=== PATIENT | female | born 1945 | race Caucasian/White ===

== ENCOUNTER 2017-09-03 21:38 | Inpatient (IN) | payer MEDICARE, SELFPAY ==
[2017-09-03 21:52] VITALS: BMI 26.6
[2017-09-03 21:57] VITALS: PULSE 78
[2017-09-03 22:00] VITALS: BP 124/69; BP 127/68; PULSE 79; RESP 18; TEMP 36.6; O2SAT 98
--- NOTE | 2017-09-03 22:27 | PCM.HP.STD ---
Problem List (1) NSTEMI (non-ST elevated myocardial infarction) Status: Acute (2) COPD exacerbation Status: Acute (3) Lactate blood increase Status: Acute (4) CAD (coronary artery disease) Status: Chronic Qualifiers: (5) COPD (chronic obstructive pulmonary disease) Status: Chronic (6) Essential hypertension Status: Chronic (7) Hyperlipidemia Status: Chronic Qualifiers: History of Present Illness Date of Admission: 09/03/17 Chief Complaint: NSTEMI The patient is a 71 year old female w/ h/o CAD s/p CABG, COPD, osteoarthritis transferred from [facility] to [facility] for NSTEMI. She was admitted for COPD exacerbation and chest pain. She has left shoulder pain for the past 2 months. Shoulder pain is dull-aching and episodic. The frequency and intensity of the pain have increased in the past few weeks. Emotional stressors and physical activity worsened pain. Rest or holding her chest helped with pain. The pain would wrap around her left chest. No radiation of pain. Pain is not associated with any other symptoms. She was admitted to [facility] and transferred to [place] for elevated trop to 0.11. EKG unchanged. Pt has intermittent left shoulder. Past Medical History Past Medical History (Chronic Problems): Chronic Problems (Last Updated 04/14/17 @ 15:43 by IRINA Banegas) COPD (chronic obstructive pulmonary disease) (Chronic) Hyperlipidemia (Chronic) Essential hypertension (Chronic) CAD (coronary artery disease) (Chronic) Allergies bacitracin [From Neosporin ([id number])] Allergy (Severe, Verified 04/14/17 15:47) rash neomycin [From Neosporin ([id number])] Allergy (Severe, Verified 04/14/17 15:47) rash Penicillins Allergy (Severe, Verified 04/14/17 15:47) rash polymyxin B [From Neosporin ([id number])] Allergy (Severe, Verified 04/14/17 15:47) rash Home Medications: Ambulatory Orders Medication Instructions Recorded aspirin 81 mg tablet,delayed 81 mg PO QDAY 04/14/17 release atorvastatin 80 mg tablet 80 mg PO QODAY 04/14/17 clopidogrel 75 mg tablet 75 mg PO ONCE 04/14/17 ezetimibe 10 mg tablet 10 mg PO QDAY 04/14/17 lisinopril 20 mg tablet 20 mg PO QDAY 04/14/17 metformin 1,000 mg tablet 1,000 mg PO BID 04/14/17 metoprolol succinate ER 100 mg 100 mg PO QDAY 04/14/17 tablet,extended release 24 hr nitroglycerin 0.4 mg sublingual 0.4 mg SUBLINGUAL Q5-15M PRN 04/14/17 tablet ranitidine 300 mg capsule 300 mg PO QHS 04/14/17 Levothyroxine Sodium 09/03/17 Lives: With Family Smoking Status: Former smoker - Used to smoke 1 pack / day between 17 and 52 y/o. Quitted smoking at 52 y/o Alcohol: None - *Family History Maternal History Items: No pertinent history Review of Systems Constitutional: Denies: Chills, Fever, Weight Change HEENT: Denies: Head Aches, Sinus Congestion, Sinus Drainage Cardiovascular: Denies: Chest Pain, Palpitations Respiratory: Denies: Cough, Shortness of breath at rest, Sputum production Gastrointestinal: Denies: Abdominal Pain, Nausea, Vomiting Genitourinary: Denies: Dysuria Musculoskeletal: Denies: Joint Pain, Joint Tenderness Skin: Denies: Rash, Wounds Neurological: Denies: Numbness, Tingling, Focal weakness Psychiatric: Denies: Anxiety, Depression, Homicidal Ideations, Suicidal Ideations Hematologic/ Lymphatic: Denies: Easy Bruising, Easy Bleeding VTE Information - Inpt Only VTE Present on Admission: No VTE Mechan Device Prophylaxis: SCD's VTE Pharm Prophylaxis ordered?: Yes Patient Problems: Active and Suspected Problems (Last Updated 04/14/17 @ 15:43 by IRINA Banegas) NSTEMI (non-ST elevated myocardial infarction) (Acute) COPD exacerbation (Acute) Lactate blood increase (Acute) - Physical Exam General: Alert, Oriented x3, Cooperative HEENT: Atraumatic, PERRLA, EOMI, Normocephalic Neck: Supple, No JVD, Negative Carotid Bruits Lungs: Clear to auscultation, Normal air movement Cardiovascular: Regular rate, No murmurs Abdomen: Bowel Sounds Present, Soft, Non Tender Extremities: No edema, Capillary Refill Less than 3 Seconds Skin: No rashes, No breakdown Musculoskeletal: No Tenderness to Palpation of Joints or Extremities Neurological: Cranial nerves II-XII grossly intact Psych/Mental Status: Normal Affect, Appropriate Weight: 72.7 kg Body Mass Index (BMI) 26.6 Assessment/Plan Active and Suspected Problems (Last Updated 04/14/17 @ 15:43 by IRINA Banegas) NSTEMI (non-ST elevated myocardial infarction) (Acute) COPD exacerbation (Acute) Lactate blood increase (Acute) 71 year old female w/ h/o CAD s/p CABG in July 2015, cholecystectomy, hysterectomy with oophorectomy in 1990 secondary to severe endometriosis, DMII, chronic diastolic heart failure, COPD, and osteoarthritis transferred from [facility] to [facility] for NSTEMI. 1) NSTEMI: Trops bumped to 0.[address] elevation or depression. C/w heparin gtt. C/w conservative medical management, ie lipitor, metoprolol, ASA, plavix, and lisinopril. Serial trops. ECHO in AM. Consulted cards. 2) COPD exacerbation: Resume home meds. C/w steroid, bronchodilators, azithromycin, and oxygen., Supportive care. 3) Elevated lactate: Cultures [id number] Will repeat elevated and consider repeating cultures if level is high. Hold metformin. Monitor. 4) Chronic issues: CAD s/p CABG in July 2015, cholecystectomy, hysterectomy with oophorectomy in 1990 secondary to severe endometriosis, DMII, chronic diastolic heart failure, COPD, and osteoarthritis: Resume home meds. Supportive care. 5) Prophylaxis: Heparin gtt.
--- NOTE | 2017-09-03 22:45 | HP.PCM_ITS ---
Problem List (1) NSTEMI (non-ST elevated myocardial infarction) Status: Acute (2) COPD exacerbation Status: Acute (3) Lactate blood increase Status: Acute (4) CAD (coronary artery disease) Status: Chronic Qualifiers: (5) COPD (chronic obstructive pulmonary disease) Status: Chronic (6) Essential hypertension Status: Chronic (7) Hyperlipidemia Status: Chronic Qualifiers: History of Present Illness Date of Admission: 09/03/17 Chief Complaint: NSTEMI The patient is a 71 year old female w/ h/o CAD s/p CABG, COPD, osteoarthritis transferred from [facility] to [facility] for NSTEMI. She was admitted for COPD exacerbation and chest pain. She has left shoulder pain for the past 2 months. Shoulder pain is dull-aching and episodic. The frequency and intensity of the pain have increased in the past few weeks. Emotional stressors and physical activity worsened pain. Rest or holding her chest helped with pain. The pain would wrap around her left chest. No radiation of pain. Pain is not associated with any other symptoms. She was admitted to [facility] and transferred to [place] for elevated trop to 0.11. EKG unchanged. Pt has intermittent left shoulder. Past Medical History Past Medical History (Chronic Problems): Chronic Problems (Last Updated 04/14/17 @ 15:43 by IRINA Banegas) COPD (chronic obstructive pulmonary disease) (Chronic) Hyperlipidemia (Chronic) Essential hypertension (Chronic) CAD (coronary artery disease) (Chronic) Allergies bacitracin [From Neosporin ([id number])] Allergy (Severe, Verified 04/14/17 15:47) rash neomycin [From Neosporin ([id number])] Allergy (Severe, Verified 04/14/17 15: 47) rash Penicillins Allergy (Severe, Verified 04/14/17 15:47) rash polymyxin B [From Neosporin ([id number])] Allergy (Severe, Verified 04/14/17 15:47) rash Home Medications: Ambulatory Orders Medication Instructions Recorded aspirin 81 mg tablet,delayed 81 mg PO QDAY 04/14/17 release atorvastatin 80 mg tablet 80 mg PO QODAY 04/14/17 clopidogrel 75 mg tablet 75 mg PO ONCE 04/14/17 ezetimibe 10 mg tablet 10 mg PO QDAY 04/14/17 lisinopril 20 mg tablet 20 mg PO QDAY 04/14/17 metformin 1,000 mg tablet 1,000 mg PO BID 04/14/17 metoprolol succinate ER 100 mg 100 mg PO QDAY 04/14/17 tablet,extended release 24 hr nitroglycerin 0.4 mg sublingual 0.4 mg SUBLINGUAL Q5-15M PRN 04/14/17 tablet ranitidine 300 mg capsule 300 mg PO QHS 04/14/17 Levothyroxine Sodium 09/03/17 Lives: With Family Smoking Status: Former smoker - Used to smoke 1 pack / day between 17 and 52 y/ o. Quitted smoking at 52 y/o Alcohol: None - *Family History Maternal History Items: No pertinent history Review of Systems Constitutional: Denies: Chills, Fever, Weight Change HEENT: Denies: Head Aches, Sinus Congestion, Sinus Drainage Cardiovascular: Denies: Chest Pain, Palpitations Respiratory: Denies: Cough, Shortness of breath at rest, Sputum production Gastrointestinal: Denies: Abdominal Pain, Nausea, Vomiting Genitourinary: Denies: Dysuria Musculoskeletal: Denies: Joint Pain, Joint Tenderness Skin: Denies: Rash, Wounds Neurological: Denies: Numbness, Tingling, Focal weakness Psychiatric: Denies: Anxiety, Depression, Homicidal Ideations, Suicidal Ideations Hematologic/ Lymphatic: Denies: Easy Bruising, Easy Bleeding VTE Information - Inpt Only VTE Present on Admission: No VTE Mechan Device Prophylaxis: SCD's VTE Pharm Prophylaxis ordered?: Yes Patient Problems: Active and Suspected Problems (Last Updated 04/14/17 @ 15:43 by IRINA Banegas) NSTEMI (non-ST elevated myocardial infarction) (Acute) COPD exacerbation (Acute) Lactate blood increase (Acute) - Physical Exam General: Alert, Oriented x3, Cooperative HEENT: Atraumatic, PERRLA, EOMI, Normocephalic Neck: Supple, No JVD, Negative Carotid Bruits Lungs: Clear to auscultation, Normal air movement Cardiovascular: Regular rate, No murmurs Abdomen: Bowel Sounds Present, Soft, Non Tender Extremities: No edema, Capillary Refill Less than 3 Seconds Skin: No rashes, No breakdown Musculoskeletal: No Tenderness to Palpation of Joints or Extremities Neurological: Cranial nerves II-XII grossly intact Psych/Mental Status: Normal Affect, Appropriate Weight: 72.7 kg Body Mass Index (BMI) 26.6 Assessment/Plan Active and Suspected Problems (Last Updated 04/14/17 @ 15:43 by IRINA Banegas) NSTEMI (non-ST elevated myocardial infarction) (Acute) COPD exacerbation (Acute) Lactate blood increase (Acute) 71 year old female w/ h/o CAD s/p CABG in July 2015, cholecystectomy, hysterectomy with oophorectomy in 1990 secondary to severe endometriosis, DMII, chronic diastolic heart failure, COPD, and osteoarthritis transferred from [facility] to [facility] for NSTEMI. 1) NSTEMI: Trops bumped to 0.[address] elevation or depression. C/w heparin gtt. C/w conservative medical management, ie lipitor, metoprolol, ASA, plavix, and lisinopril. Serial trops. ECHO in AM. Consulted cards. 2) COPD exacerbation: Resume home meds. C/w steroid, bronchodilators, azithromycin, and oxygen., Supportive care. 3) Elevated lactate: Cultures [id number] Will repeat elevated and consider repeating cultures if level is high. Hold metformin. Monitor. 4) Chronic issues: CAD s/p CABG in July 2015, cholecystectomy, hysterectomy with oophorectomy in 1990 secondary to severe endometriosis, DMII, chronic diastolic heart failure, COPD, and osteoarthritis: Resume home meds. Supportive care. 5) Prophylaxis: Heparin gtt.
--- NOTE | 2017-09-03 22:55 | EKG12_ITS ---
Test Reason : CP ADMISSION Blood Pressure : / mmHG Vent. Rate : 078 BPM Atrial Rate : 078 BPM P-R Int : 176 ms QRS Dur : 076 ms QT Int : 404 ms P-R-T Axes : 073 063 091 degrees QTc Int : 460 ms Normal sinus rhythm Septal infarct , age undetermined Abnormal ECG When compared with ECG of 10-NOV-2011 10:34, Septal infarct is now Present Confirmed by FILEMON ÁLVAREZ, NUHA ([id number]), videotape editor RUSSELL BASURTO ([id number]) on 09/06/2017 3:23:44 PM Referred By: SAUL Confirmed By:NUHA COLBERT MD
[2017-09-03 23:03] VITALS: PULSE 78
--- NOTE | 2017-09-03 23:14 | NURSING ---
Called [facility] and Spoke with Carmela KENNEY. Heparin Drip started at [address] [facility]. She will fax documentation for this and PTT results.
[2017-09-03] MEDS: HEPARIN/D5w 25,000 UNITS 25,000 UNITS/250 ML IV.SOLN. 12.8 UNITS IV (23:38)
[2017-09-03] MEDS: 0.9% Normal Saline 1,000 ML 100 ML IV (23:39)
[2017-09-03 23:42] LABS: Lactic Acid 2.2 mmol/L (0.4-2.0)
[2017-09-03 23:45] VITALS: BMI 26.7
[2017-09-04] VITALS (41 sets, daily range): BP systolic 104–165; BP diastolic 52–97; PULSE 71–115; RESP 16–23; TEMP 36.4–37.2; O2SAT 92–99
[2017-09-04 01:59] LABS: Partial Thromboplast Time 210.5 Seconds (24.1-36.2)
[2017-09-04 03:02] LABS: Reflex Lactate? Y
[2017-09-04 03:47] LABS: Hematocrit 35.8 % (37-47); Hemoglobin 12.1 g/dl (12.0-15.0); Mean Corp Hgb Conc 33.8 g/gl (32-36); Mean Corpuscular Hgb 30.2 pg (27.0-32.0); Mean Corpuscular Volume 89.3 fL (81-99); Mean Platelet Vol. 9.2 fl (6.2-12.0); Platelet Count 296 K/mm3 (150-450); RBC Distribution Width CV 13.6 % (11.6-14.6); RBC Distribution Width SD 43.6 fl (35.1-43.9); Red Blood Count 4.01 M/mm3 (4.2-5.4); White Blood Count 14.2 K/mm3 (4.4-11.0)
[2017-09-04 03:49] LABS: Scan Indicated on CBC? Y/N NO
[2017-09-04 04:13] LABS: Lactic Acid 2.6 mmol/L (0.4-2.0)
[2017-09-04 04:20] LABS: Albumin, Serum 3.2 g/dL (3.2-5.0); BUN 22 mg/dL (7-18); BUN/Creat Ratio 28.9 RATIO (10-20); Creatinine, Serum 0.76 mg/dL (0.55-1.02); EST Glomerular Filtration Rate 79 mL/min (>60); Est Glom Filt Rate - Afr Amer 96 mL/min (>60); Estimated Creatinine Clearance 46.43 ml/min; Glucose 171 mg/dL (74-106); Protein, Total 6.7 g/dL (6.4-8.2)
[2017-09-04 04:21] LABS: ALB/GLOB Ratio 0.9 RATIO (0.9-2.4); AST(SGOT) 18 U/L (15-37); Alanine Aminotransfer ALT/SGPT 21 U/L (13-56); Alkaline Phosphatase 89 U/L (45-117); Anion Gap 10 (5-15); Calcium,Total 8.4 mg/dL (8.5-10.1); Chloride 108 mmol/L (98-107); Cholesterol 175 mg/dL (200); Globulin 3.5 g/dL (2.2-4.2); High Density Lipoprotein 67 mg/dL; Potassium 4.4 mmol/L (3.5-5.1); Sodium Level 141 mmol/L (136-145); Thyroid Stim Hormone (TSH) 0.08 uIU/mL (0.358-3.74); Triglycerides 127 mg/dL; Very Low Density Lipoprotein 25 mg/dL (5-40)
[2017-09-04] MEDS: 0.9% Normal Saline 1,000 ML 999 ML IV (04:47)
--- NOTE | 2017-09-04 05:55 | ECHOD_ITS ---
Reason For Study: Chest Pain Procedure This was a 2D Doppler, Color Flow transthoracic echocardiogram. The study was technically difficult. Exam performed portable in ICU/CCU. Left Ventricle Normal LV size. Left ventricular systolic function is normal. The estimated ejection fraction is 60 %. Transmitral diastolic flow velocities suggest mild (stage 1) diastolic dysfunction (reversed pattern). No regional wall motion abnormalities noted. Right Ventricle Normal RV size. Normal systolic function. Atria Normal left atrium. Normal right atrium. Mitral Valve Normal mitral valve. Mild (1+) eccentric mitral valve insufficiency. Tricuspid Valve Normal tricuspid valve. Mild (1+) tricuspid valve insufficiency. Pulmonary artery systolic pressure is 46 mmHg. Aortic Valve Trisinus/trileaflet aortic valve. Mild focal aortic valve calcification. Peak aortic valve gradient 15 mmHg. Mean aortic valve gradient 6.5 mmHg. Mild aortic stenosis. Pulmonic Valve The pulmonic valve is not well visualized. Great Vessels Calcified aortic root. The pulmonary artery is normal size. Inferior vena cava collapse with respiration. Pericardium/Pleural No pericardial effusion. MMode/2D Measurements & Calculations LVIDd: 4.1 cm IVSd: 1.1 cm Ao root diam: 3.1 cm LVIDs: 2.6 cm LVPWd: 1.3 cm FS: 37.0 % LAV(MOD-sp2): 43.2 ml Time Measurements MV dec time: 0.23 sec Doppler Measurements & Calculations MV E max chintan: 127.1 cm/sec Lat Peak E' Chintan: 9.7 cm/sec Med Peak E' Chintan: 6.8 cm/sec MV A max chintan: 152.3 cm/sec E/E' lat: 13.0 E/E' med: 18.8 MV E/A: 0.83 MV V2 max: 193.0 cm/sec MV P1/2t max chintan: 171.8 cm/sec Ao V2 max: 198.9 cm/sec MV max P.9 mmHg MV P1/2t: 61.4 msec Ao max P.8 mmHg MV V2 mean: 114.4 cm/sec MV dec slope: 819.2 cm/sec2 Ao V2 mean: 113.7 cm/sec MV mean P.1 mmHg MVA(P1/2t): 3.6 cm2 Ao mean P.5 mmHg MV V2 VTI: 44.1 cm Ao V2 VTI: 36.3 cm LV V1 max: 124.7 cm/sec PA V2 max: 131.8 cm/sec TR max chnitan: 333.2 cm/sec LV V1 max P.2 mmHg TR max P.4 mmHg LV V1 mean P.8 mmHg LV V1 mean: 76.7 cm/sec LV V1 VTI: 26.1 cm Interpretation Summary Normal LV size. Left ventricular systolic function is normal. The estimated ejection fraction is 60 %. Transmitral diastolic flow velocities suggest mild (stage 1) diastolic dysfunction (reversed pattern). Calcified aortic root. Ordering Physician: Thomas Macias Performed By: Sam Saldivar RCS
--- NOTE | 2017-09-04 05:55 | EKG12_ITS ---
Test Reason : AM EKG Blood Pressure : / mmHG Vent. Rate : 082 BPM Atrial Rate : 082 BPM P-R Int : 176 ms QRS Dur : 080 ms QT Int : 400 ms P-R-T Axes : 063 062 111 degrees QTc Int : 467 ms Sinus rhythm with Premature atrial complexes Septal infarct , age undetermined Abnormal ECG When compared with ECG of 03-SEP-2017 23:02, MANUAL COMPARISON REQUIRED, DATA IS UNCONFIRMED Confirmed by FILEMON ÁLVAREZ, NUHA ([id number]), science editor RUSSELL BASURTO ([id number]) on 09/06/2017 3:23:25 PM Referred By: SAUL Confirmed By:NUHA COLBERT MD
[2017-09-04] MEDS: Levothyroxine 88 MCG Tablet PO (06:39)
[2017-09-04] MEDS: Ipratropium/Albuterol Sulfate 3 ML AMPUL.NEB INHALATION ×5 (06:51→22:22)
[2017-09-04] MEDS: Aspirin E.C. 81 MG Tablet PO (08:14)
[2017-09-04 08:48] LABS: Partial Thromboplast Time 79.6 Seconds (24.1-36.2)
--- NOTE | 2017-09-04 09:03 | EKG12_ITS ---
Test Reason : CP Blood Pressure : / mmHG Vent. Rate : 108 BPM Atrial Rate : 108 BPM P-R Int : 170 ms QRS Dur : 078 ms QT Int : 332 ms P-R-T Axes : 073 073 136 degrees QTc Int : 444 ms Sinus tachycardia Septal infarct , age undetermined Marked ST abnormality, possible lateral subendocardial injury Abnormal ECG When compared with ECG of 04-SEP-2017 05:00, MANUAL COMPARISON REQUIRED, DATA IS UNCONFIRMED Confirmed by FILEMON ÁLVAREZ, NUHA ([id number]), social media editor RUSSELL BASURTO ([id number]) on 09/06/2017 3:22:50 PM Referred By: SAUL Confirmed By:NUHA COLBERT MD
[2017-09-04] MEDS: 0.9% Normal Saline 1,000 ML 100 ML IV ×2 (09:33→22:02)
[2017-09-04] MEDS: Nitroglycerin Oint 1 INCH PACKET TRANSDERM. (09:35)
[2017-09-04] MEDS: Metoprolol Tartrate 50 MG Tablet PO ×2 (09:35→21:55)
--- NOTE | 2017-09-04 09:37 | PCM.PN.HOSP ---
Patient Problems: Active and Suspected Problems (Last Updated 04/14/17 @ 15:43 by IRINA Banegas) NSTEMI (non-ST elevated myocardial infarction) (Acute) COPD exacerbation (Acute) Lactate blood increase (Acute) Subjective: Nurse called me for patient having chest pain. While coming back from bathroom, patient complain of chest pain. Characteristic of her chest pain is mainly intrascapular that wraps around her chest on the left side along with shortness of breath. EKG done during chest pain shows nonspecific ST depression in lateral leads similar to the previous EKG suggestive of possible subendocardial injury. Sinus tachycardia at 108 bpm. She has history of COPD but her shortness of breath gotten worse in last 1 or 2 weeks along with wheezing. Shortness of breath and wheezing are better on bronchodilator given in ER yesterday. The patient was transferred from [place] for concern of non-STEMI along with COPD exacerbation. Patient has triple bypass CABG about 2 years ago in [facility] and then she had a stress test by Dr. constantino about 6 months ago and was normal.. Troponins significantly elevated 1.66, 1.86 in the range of non-STEMI. Currently on aspirin, Plavix and IV heparin Along beta-reina and STELLA inhibitor on ACS protocol. Vitals/I&O's: Vital Signs Temp Pulse Resp BP Pulse Ox 97.6 F L 104 H 20 H 144/94 H 96 09/04/17 09:22 09/04/17 09:22 09/04/17 09:22 09/04/17 09:22 09/04/17 09:22 Oxygen Flow Rate (L/min) 2 Oxygen Delivery Method Nasal Cannula Weight: 160 lb 4.417 oz Body Mass Index (BMI) 26.6 Intake and Output for Last 24 Hours 09/02/17 09/03/17 09/04/17 23:59 23:59 23:59 Intake Total 1791 Balance 1791 General: Alert, Oriented x3, Cooperative HEENT: Atraumatic, PERRLA, EOMI, Normocephalic Neck: Supple, No JVD, Negative Carotid Bruits Lungs: Diminished, Rhonchi, Short of Breath, Tachypneic Cardiovascular: Regular rate, Regular Rhythm, Normal S1, Normal S2, No murmurs, - - Triple bypass surgery Abdomen: Bowel Sounds Present, Soft, Non Tender, Non-Distended Extremities: No edema, Capillary Refill Less than 3 Seconds Skin: No rashes, No breakdown Musculoskeletal: No Tenderness to Palpation of Joints or Extremities, Arthritic Changes Neurological: Cranial nerves II-XII grossly intact Psych/Mental Status: Normal Affect, Appropriate Microbiology Past 72 Hours 09/03/17 22:50 Mucosa - Nose Influenza Types A,B Direct FA (JASKARAN) - Final Laboratory Results 09/03/17 22:50: Lactic Acid 2.2 H 09/03/17 22:50: APTT Cancelled 09/03/17 22:50: Troponin I 1.660 H* 09/04/17 01:22: Troponin I 2.090 H* 09/04/17 01:22: APTT 210.5 H* 09/04/17 03:38: WBC 14.2 H, RBC 4.01 L, Hgb 12.1, Hct 35.8 L, MCV 89.3, MCH 30.2, MCHC 33.8, RDW 13.6, RDW Differential 43.6, Plt Count 296, MPV 9.2 09/04/17 03:38: Sodium 141, Potassium 4.4, Chloride 108 H, Carbon Dioxide 23.0, Anion Gap 10, BUN 22 H, Creatinine 0.76, Estim Creat Clear Calc 46.43, Est GFR (MDRD) Af Amer 96, Est GFR (MDRD) Non-Af 79, BUN/Creatinine Ratio 28.9 H, Glucose 171 H, Calcium 8.4 L, Total Bilirubin 0.20, AST 18, ALT 21, Alkaline Phosphatase 89, Total Protein 6.7, Albumin 3.2, Globulin 3.5, Albumin/Globulin Ratio 0.9, Triglycerides 127, Cholesterol 175, LDL Cholesterol 83, VLDL Cholesterol 25, HDL Cholesterol 67, TSH 0.08 L 09/04/17 03:38: Troponin I 1.860 H* 09/04/17 03:38: Lactic Acid 2.6 H 09/04/17 08:15: APTT 79.6 H Current Medications Albuterol/Ipratropium (Duoneb) 3 ml INHALATION Q4H.RT [facility] Last Admin: 09/04/17 06:51 Dose: 3 ml Aspirin (Ecotrin) 81 mg PO DAILYCM [facility] Last Admin: 09/04/17 08:14 Dose: 81 mg Atorvastatin Calcium (Lipitor) 80 mg PO QODAY@2200 [facility] Clopidogrel Bisulfate (Plavix) 75 mg PO DAILY [facility] Ezetimibe (Zetia) 10 mg PO DAILY [facility] Famotidine (Pepcid) 40 mg PO QHS [facility] Heparin Sodium (Porcine) () 0 units IV UD PRN PRN Reason: Protocol Sodium Chloride () 1,000 mls @ 100 mls/hr IV .Q10H [facility] Last Admin: 09/04/17 09:33 Dose: 100 mls/hr Azithromycin 500 mg/ Dextrose 255 mls @ 250 mls/hr IV Q24 [facility] Stop: 09/05/17 11:02 Last Admin: 09/04/17 00:23 Dose: 250 mls/hr Heparin Sodium/Dextrose () 25,000 units in 250 mls @ 11 mls/hr IV .[id number] [facility]; As Directed PRN Reason: Protocol Last Admin: 09/03/17 23:38 Dose: 12.8 mls/hr Levothyroxine Sodium (Synthroid) 88 mcg PO DAILY@0600 [facility] Last Admin: 09/04/17 06:39 Dose: 88 mcg Lisinopril (Zestril) 20 mg PO DAILY [facility] Methylprednisolone (Solu-Medrol) 40 mg IV Q8 [facility] Stop: 09/04/17 22:01 Last Admin: 09/04/17 06:39 Dose: 40 mg Metoprolol Tartrate (Lopressor (Beta Reina)) 50 mg PO BID [facility] Nitroglycerin (Nitrostat) 0.4 mg SUBLINGUAL Q5M PRN PRN Reason: CHEST PAIN Last Admin: 09/04/17 09:12 Dose: 0.4 mg Nitroglycerin (Nitrobid) 1 inch TRANSDERM. Q6 [facility] Prednisone () 40 mg PO DAILY@0800 [facility] Sodium Chloride () 5 - 30 ml IV UD PRN PRN Reason: SALINE FLUSH Medical Necessity - Tobacco Use Smoking Status: Former smoker Assessment/Plan Active and Suspected Problems (Last Updated 04/14/17 @ 15:43 by IRINA Banegas) NSTEMI (non-ST elevated myocardial infarction) (Acute) COPD exacerbation (Acute) Lactate blood increase (Acute) 71 year old female w/ h/o CAD s/p CABG in July 2015, cholecystectomy, hysterectomy with oophorectomy in 1990 secondary to severe endometriosis, DMII, chronic diastolic heart failure, COPD, and osteoarthritis transferred from [place] to [facility] for NSTEMI. 1) NSTEMI; most probably lateral subendocardial injury: The patient is being admitted in PCU. First troponin were normal and then third 0.11 in [place] ER. Here, troponin I 0.66, 2.09. EKG shows subtle ST depression in lateral leads in 1, aVL and V5 V6. C/w heparin gtt. C/w medical management, lipitor, metoprolol, ASA, plavix, and lisinopril. Discussed with psychiatric clinician Dr. Landa. ECHO in AM. 2) COPD exacerbation most probably from viral bronchitis: Influenza test is negative. Resume home meds. C/w steroid, bronchodilators, azithromycin, and oxygen., Supportive care. 3) Elevated lactate, most rarely from dehydration/metformin: Cultures [id number] Will repeat elevated and consider repeating cultures if level is high. Hold metformin. Monitor. 4) Chronic issues: CAD s/p CABG in July 2015, cholecystectomy, hysterectomy with oophorectomy in 1990 secondary to severe endometriosis, DMII, chronic diastolic heart failure, COPD, and osteoarthritis: Resume home meds. Supportive care. 5) Prophylaxis: Heparin drip. Microbiology Past 72 Hours 09/03/17 22:50 Mucosa - Nose Influenza Types A,B Direct FA (JASKARAN) - Final Laboratory Results 09/03/17 22:50: Lactic Acid 2.2 H 09/03/17 22:50: APTT Cancelled 09/03/17 22:50: Troponin I 1.660 H* 09/04/17 01:22: Troponin I 2.090 H* 09/04/17 01:22: APTT 210.5 H* 09/04/17 03:38: WBC 14.2 H, RBC 4.01 L, Hgb 12.1, Hct 35.8 L, MCV 89.3, MCH 30.2, MCHC 33.8, RDW 13.6, RDW Differential 43.6, Plt Count 296, MPV 9.2 09/04/17 03:38: Sodium 141, Potassium 4.4, Chloride 108 H, Carbon Dioxide 23.0, Anion Gap 10, BUN 22 H, Creatinine 0.76, Estim Creat Clear Calc 46.43, Est GFR (MDRD) Af Amer 96, Est GFR (MDRD) Non-Af 79, BUN/Creatinine Ratio 28.9 H, Glucose 171 H, Calcium 8.4 L, Total Bilirubin 0.20, AST 18, ALT 21, Alkaline Phosphatase 89, Total Protein 6.7, Albumin 3.2, Globulin 3.5, Albumin/Globulin Ratio 0.9, Triglycerides 127, Cholesterol 175, LDL Cholesterol 83, VLDL Cholesterol 25, HDL Cholesterol 67, TSH 0.08 L 09/04/17 03:38: Troponin I 1.860 H* 09/04/17 03:38: Lactic Acid 2.6 H 09/04/17 08:15: APTT 79.6 H Code Visit Inpatient E&M: 38911 Subs Hosp L3
--- NOTE | 2017-09-04 09:58 | PN_ITS ---
Patient Problems: Active and Suspected Problems (Last Updated 04/14/17 @ 15:43 by IRINA Banegas) NSTEMI (non-ST elevated myocardial infarction) (Acute) COPD exacerbation (Acute) Lactate blood increase (Acute) Subjective: Nurse called me for patient having chest pain. While coming back from bathroom , patient complain of chest pain. Characteristic of her chest pain is mainly intrascapular that wraps around her chest on the left side along with shortness of breath. EKG done during chest pain shows nonspecific ST depression in lateral leads similar to the previous EKG suggestive of possible subendocardial injury. Sinus tachycardia at 108 bpm. She has history of COPD but her shortness of breath gotten worse in last 1 or 2 weeks along with wheezing. Shortness of breath and wheezing are better on bronchodilator given in ER yesterday. The patient was transferred from [facility] for concern of non-STEMI along with COPD exacerbation. Patient has triple bypass CABG about 2 years ago in [facility] and then she had a stress test by Dr. constantino about 6 months ago and was normal.. Troponins significantly elevated 1.66, 1.86 in the range of non-STEMI. Currently on aspirin, Plavix and IV heparin Along beta- reina and STELLA inhibitor on ACS protocol. Vitals/I&O's: Vital Signs Temp Pulse Resp BP Pulse Ox 97.6 F L 104 H 20 H 144/94 H 96 09/04/17 09:22 09/04/17 09:22 09/04/17 09:22 09/04/17 09:22 09/04/17 09:22 Oxygen Flow Rate (L/min) 2 Oxygen Delivery Method Nasal Cannula Weight: 160 lb 4.417 oz Body Mass Index (BMI) 26.6 Intake and Output for Last 24 Hours 09/02/17 09/03/17 09/04/17 23:59 23:59 23:59 Intake Total 1791 Balance 1791 General: Alert, Oriented x3, Cooperative HEENT: Atraumatic, PERRLA, EOMI, Normocephalic Neck: Supple, No JVD, Negative Carotid Bruits Lungs: Diminished, Rhonchi, Short of Breath, Tachypneic Cardiovascular: Regular rate, Regular Rhythm, Normal S1, Normal S2, No murmurs, - - Triple bypass surgery Abdomen: Bowel Sounds Present, Soft, Non Tender, Non-Distended Extremities: No edema, Capillary Refill Less than 3 Seconds Skin: No rashes, No breakdown Musculoskeletal: No Tenderness to Palpation of Joints or Extremities, Arthritic Changes Neurological: Cranial nerves II-XII grossly intact Psych/Mental Status: Normal Affect, Appropriate Microbiology Past 72 Hours 09/03/17 22:50 Mucosa - Nose Influenza Types A,B Direct FA (JASKARAN) - Final Laboratory Results 09/03/17 22:50: Lactic Acid 2.2 H 09/03/17 22:50: APTT Cancelled 09/03/17 22:50: Troponin I 1.660 H* 09/04/17 01:22: Troponin I 2.090 H* 09/04/17 01:22: APTT 210.5 H* 09/04/17 03:38: WBC 14.2 H, RBC 4.01 L, Hgb 12.1, Hct 35.8 L, MCV 89.3, MCH 30.2 , MCHC 33.8, RDW 13.6, RDW Differential 43.6, Plt Count 296, MPV 9.2 09/04/17 03:38: Sodium 141, Potassium 4.4, Chloride 108 H, Carbon Dioxide 23.0, Anion Gap 10, BUN 22 H, Creatinine 0.76, Estim Creat Clear Calc 46.43, Est GFR ( MDRD) Af Amer 96, Est GFR (MDRD) Non-Af 79, BUN/Creatinine Ratio 28.9 H, Glucose 171 H, Calcium 8.4 L, Total Bilirubin 0.20, AST 18, ALT 21, Alkaline Phosphatase 89, Total Protein 6.7, Albumin 3.2, Globulin 3.5, Albumin/Globulin Ratio 0.9, Triglycerides 127, Cholesterol 175, LDL Cholesterol 83, VLDL Cholesterol 25, HDL Cholesterol 67, TSH 0.08 L 09/04/17 03:38: Troponin I 1.860 H* 09/04/17 03:38: Lactic Acid 2.6 H 09/04/17 08:15: APTT 79.6 H Current Medications Albuterol/Ipratropium (Duoneb) 3 ml INHALATION Q4H.RT [facility] Last Admin: 09/04/17 06:51 Dose: 3 ml Aspirin (Ecotrin) 81 mg PO DAILYCM [facility] Last Admin: 09/04/17 08:14 Dose: 81 mg Atorvastatin Calcium (Lipitor) 80 mg PO QODAY@2200 [facility] Clopidogrel Bisulfate (Plavix) 75 mg PO DAILY [facility] Ezetimibe (Zetia) 10 mg PO DAILY [facility] Famotidine (Pepcid) 40 mg PO QHS [facility] Heparin Sodium (Porcine) () 0 units IV UD PRN PRN Reason: Protocol Sodium Chloride () 1,000 mls @ 100 mls/hr IV .Q10H [facility] Last Admin: 09/04/17 09:33 Dose: 100 mls/hr Azithromycin 500 mg/ Dextrose 255 mls @ 250 mls/hr IV Q24 [facility] Stop: 09/05/17 11:02 Last Admin: 09/04/17 00:23 Dose: 250 mls/hr Heparin Sodium/Dextrose () 25,000 units in 250 mls @ 11 mls/hr IV .[id number] [facility] ; As Directed PRN Reason: Protocol Last Admin: 09/03/17 23:38 Dose: 12.8 mls/hr Levothyroxine Sodium (Synthroid) 88 mcg PO DAILY@0600 [facility] Last Admin: 09/04/17 06:39 Dose: 88 mcg Lisinopril (Zestril) 20 mg PO DAILY [facility] Methylprednisolone (Solu-Medrol) 40 mg IV Q8 [facility] Stop: 09/04/17 22:01 Last Admin: 09/04/17 06:39 Dose: 40 mg Metoprolol Tartrate (Lopressor (Beta Reina)) 50 mg PO BID [facility] Nitroglycerin (Nitrostat) 0.4 mg SUBLINGUAL Q5M PRN PRN Reason: CHEST PAIN Last Admin: 09/04/17 09:12 Dose: 0.4 mg Nitroglycerin (Nitrobid) 1 inch TRANSDERM. Q6 [facility] Prednisone () 40 mg PO DAILY@0800 [facility] Sodium Chloride () 5 - 30 ml IV UD PRN PRN Reason: SALINE FLUSH Medical Necessity - Tobacco Use Smoking Status: Former smoker Assessment/Plan Active and Suspected Problems (Last Updated 04/14/17 @ 15:43 by IRINA Banegas) NSTEMI (non-ST elevated myocardial infarction) (Acute) COPD exacerbation (Acute) Lactate blood increase (Acute) 71 year old female w/ h/o CAD s/p CABG in July 2015, cholecystectomy, hysterectomy with oophorectomy in 1990 secondary to severe endometriosis, DMII, chronic diastolic heart failure, COPD, and osteoarthritis transferred from [facility] to [facility] for NSTEMI. 1) NSTEMI; most probably lateral subendocardial injury: The patient is being admitted in PCU. First troponin were normal and then third 0.11 in [place] ER. Here, troponin I 0.66, 2.09. EKG shows subtle ST depression in lateral leads in 1, aVL and V5 V6. C/w heparin gtt. C/w medical management, lipitor, metoprolol, ASA, plavix, and lisinopril. Discussed with motion picture set grip Dr. Landa. ECHO in AM. 2) COPD exacerbation most probably from viral bronchitis: Influenza test is negative. Resume home meds. C/w steroid, bronchodilators, azithromycin, and oxygen., Supportive care. 3) Elevated lactate, most rarely from dehydration/metformin: Cultures negative- to-date Will repeat elevated and consider repeating cultures if level is high. Hold metformin. Monitor. 4) Chronic issues: CAD s/p CABG in July 2015, cholecystectomy, hysterectomy with oophorectomy in 1990 secondary to severe endometriosis, DMII, chronic diastolic heart failure, COPD, and osteoarthritis: Resume home meds. Supportive care. 5) Prophylaxis: Heparin drip. Microbiology Past 72 Hours 09/03/17 22:50 Mucosa - Nose Influenza Types A,B Direct FA (JASKARAN) - Final Laboratory Results 09/03/17 22:50: Lactic Acid 2.2 H 09/03/17 22:50: APTT Cancelled 09/03/17 22:50: Troponin I 1.660 H* 09/04/17 01:22: Troponin I 2.090 H* 09/04/17 01:22: APTT 210.5 H* 09/04/17 03:38: WBC 14.2 H, RBC 4.01 L, Hgb 12.1, Hct 35.8 L, MCV 89.3, MCH 30.2 , MCHC 33.8, RDW 13.6, RDW Differential 43.6, Plt Count 296, MPV 9.2 09/04/17 03:38: Sodium 141, Potassium 4.4, Chloride 108 H, Carbon Dioxide 23.0, Anion Gap 10, BUN 22 H, Creatinine 0.76, Estim Creat Clear Calc 46.43, Est GFR ( MDRD) Af Amer 96, Est GFR (MDRD) Non-Af 79, BUN/Creatinine Ratio 28.9 H, Glucose 171 H, Calcium 8.4 L, Total Bilirubin 0.20, AST 18, ALT 21, Alkaline Phosphatase 89, Total Protein 6.7, Albumin 3.2, Globulin 3.5, Albumin/Globulin Ratio 0.9, Triglycerides 127, Cholesterol 175, LDL Cholesterol 83, VLDL Cholesterol 25, HDL Cholesterol 67, TSH 0.08 L 09/04/17 03:38: Troponin I 1.860 H* 09/04/17 03:38: Lactic Acid 2.6 H 09/04/17 08:15: APTT 79.6 H Code Visit Inpatient E&M: 48393 Subs Hosp L3
[2017-09-04 10:37] LABS: Hemoglobin A1c 6.5 % (4.2-6.3)
[2017-09-04 10:54] LABS: Lactic Acid 4.6 mmol/L (0.4-2.0)
[2017-09-04 10:58] LABS: T4 Free Direct 1.36 ng/dL (0.76-1.46)
[2017-09-04] MEDS: Ezetimibe 10 MG Tablet PO (11:00)
[2017-09-04] MEDS: Clopidogrel Bisulfate 75 MG Tablet PO (11:00)
[2017-09-04] MEDS: Lisinopril 20 MG Tablet PO (11:00)
--- NOTE | 2017-09-04 11:11 | NURSING ---
This RN taking over care at this time
[2017-09-04] MEDS: 0.9% NaCl Peripheral Flush Adult/Peds IV ×4 (11:28→22:01)
[2017-09-04] MEDS: Morphine 4 MG/ML Syringe 2 MG IV (11:28)
--- NOTE | 2017-09-04 13:01 | PCM.CONS.C ---
Problem List (1) NSTEMI (non-ST elevated myocardial infarction) Status: Acute (2) CAD (coronary artery disease) Status: Chronic Qualifiers: Coronary Disease-Associated Artery/Lesion type: [place] artery [place] vs. transplanted heart: [place] heart Associated angina: with unstable angina Qualified Code(s): I25.110 - Atherosclerotic heart disease of [place] coronary artery with unstable angina pectoris (3) S/P CABG x 3 Status: Acute Comment: SHETH to LAD; SVG to OM; SVG to PDA (4) Hyperlipidemia Status: Chronic Qualifiers: Hyperlipidemia type: unspecified Qualified Code(s): E78.5 - Hyperlipidemia, unspecified (5) HTN (hypertension) Status: Chronic Qualifiers: Hypertension type: essential hypertension Qualified Code(s): I10 - Essential (primary) hypertension (6) COPD (chronic obstructive pulmonary disease) Status: Chronic Qualifiers: Emphysema type: unspecified Reason for Consult Date of Consultation: 09/04/17 History of Present Illness: The patient is a 71 year old female with a past cardiovascular history of underlying CAD, CABG, who proposed upon hyperlipidemia, hypertension, and COPD who presents for concerns of unstable angina pectoris and non-ST segment elevation MS. She notes that she has been having episodes of left-sided chest discomfort involving the left shoulder area, left back, and left neck/jaw area associated with shortness of breath/dyspnea. She has been using nitroglycerin sublingual for this. It does give her relief. Based upon ongoing concerns she presented to her local emergency department in [place], [place] yesterday for further evaluation. There she was noted to have an abnormal troponin I level. 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 Since being at [facility] she has had intermittent episodes of similar type symptoms. They have been treated with nitrates with improvement. She has denied orthopnea or PND or worsening peripheral pitting edema. She has denied near syncope or syncope. Her cardiac enzymes have been repeated and they have demonstrated abnormal troponin I levels which are now decreasing. Her ECG on admission demonstrated sinus rhythm with a septal MS pattern of indeterminate age. Repeat ECGs have demonstrated sinus rhythm/sinus tachycardia with a septal MS of indeterminate age as well as ST segment/T-wave abnormalities in the inferior/lateral leads potentially compatible with myocardial ischemia. [] Past Medical History Allergies/Adverse Reactions: Allergies bacitracin [From Neosporin ([id number])] Allergy (Severe, Verified 04/14/17 15:47) rash neomycin [From Neosporin ([id number])] Allergy (Severe, Verified 04/14/17 15:47) rash Penicillins Allergy (Severe, Verified 04/14/17 15:47) rash polymyxin B [From Neosporin ([id number])] Allergy (Severe, Verified 04/14/17 15:47) rash Home Medications: Ambulatory Orders Medication Instructions Recorded aspirin 81 mg tablet,delayed 81 mg PO QDAY 04/14/17 release atorvastatin 80 mg tablet 80 mg PO QODAY 04/14/17 clopidogrel 75 mg tablet 75 mg PO ONCE 04/14/17 ezetimibe 10 mg tablet 10 mg PO QDAY 04/14/17 lisinopril 20 mg tablet 20 mg PO QDAY 04/14/17 metformin 1,000 mg tablet 1,000 mg PO BID 04/14/17 metoprolol succinate ER 100 mg 100 mg PO QDAY 04/14/17 tablet,extended release 24 hr nitroglycerin 0.4 mg sublingual 0.4 mg SUBLINGUAL Q5-15M PRN 04/14/17 tablet ranitidine 300 mg capsule 300 mg PO QHS 04/14/17 Levothyroxine Sodium 88 mcg PO DAILY 09/03/17 Past Medical History (Chronic Problems): Chronic Problems (Last Updated 04/14/17 @ 15:43 by IRINA Banegas) HTN (hypertension) (Chronic) COPD (chronic obstructive pulmonary disease) (Chronic) Hyperlipidemia (Chronic) Essential hypertension (Chronic) CAD (coronary artery disease) (Chronic) Surgical History: coronary bypass surgery - SHETH to LAD; SVG to OM; SVG to PDA - *Family History Maternal History Items: No pertinent history Lives: With Family Smoking Status: Former smoker Alcohol: None Drugs: None Review of Systems - Review of Systems General: Denies: Fever, Night Sweats, Fatigue Cardiovascular: Reports: Chest Discomfort, Chest Discomfort at Rest, Shortness of Breath, Shortness of Breath at Rest. Denies: Orthopnea, PND, Peripheral Edema, Palpitations, Lightheadedness, Dizziness, Near Syncope, Syncope Respiratory: Reports: Shortness of Breath. Denies: Cough, Sputum Production, Hemoptysis Gastrointestinal: Denies: Hematemesis, Hematochezia, Melena Genitourinary: Denies: Dysuria, Hematuria Skin: Denies: Rash Subjectve: This is a 71-year-old white female who appears to be resting comfortably at the moment on her current medical management. Objective: Vital Signs Temp Pulse Resp BP Pulse Ox 97.8 F 82 20 H 117/68 92 09/04/17 11:00 09/04/17 12:45 09/04/17 12:45 09/04/17 12:45 09/04/17 12:45 Oxygen Flow Rate (L/min) 2 Oxygen Delivery Method Room Air Weight: 160 lb 4.417 oz Body Mass Index (BMI) 26.6 Intake and Output for Last 24 Hours 09/02/17 09/03/17 09/04/17 23:59 23:59 23:59 Intake Total 2985 / 2985 Balance 2985 / 2985 General: Awake, Alert, Oriented x 3, Cooperative, No Acute Distress HEENT: Atraumatic, Normocephalic, PERRL, Sclera Non Icteric Neck: Supple, Good ROM, No JVD Lungs: Clear to auscultation Cardiovascular: Regular Rhythm, Normal S1, Normal S2 Murmur Murmur: Grade 2/6, Soft, Mid Systolic, LLSB Vascular: No Carotid Bruits Abdomen: Bowel Sounds Present, Soft, Non Tender Extremities: No Cyanosis, No Clubbing, No edema Neurological: No Focal Motor or Sensory Deficit 09/03/17 22:50: Lactic Acid 2.2 H 09/03/17 22:50: APTT Cancelled 09/03/17 22:50: Troponin I 1.660 H* 09/04/17 01:22: Troponin I 2.090 H* 09/04/17 01:22: APTT 210.5 H* 09/04/17 03:38: WBC 14.2 H, RBC 4.01 L, Hgb 12.1, Hct 35.8 L, MCV 89.3, MCH 30.2, MCHC 33.8, RDW 13.6, RDW Differential 43.6, Plt Count 296, MPV 9.2 09/04/17 03:38: Sodium 141, Potassium 4.4, Chloride 108 H, Carbon Dioxide 23.0, Anion Gap 10, BUN 22 H, Creatinine 0.76, Est GFR (MDRD) Af Amer 96, Est GFR (MDRD) Non-Af 79, BUN/Creatinine Ratio 28.9 H, Glucose 171 H, Calcium 8.4 L, Total Bilirubin 0.20, Triglycerides 127, Cholesterol 175, LDL Cholesterol 83, VLDL Cholesterol 25, HDL Cholesterol 67 09/04/17 03:38: Troponin I 1.860 H* 09/04/17 03:38: Lactic Acid 2.6 H 09/04/17 08:15: APTT 79.6 H 09/04/17 09:44: Lactic Acid 4.6 H* 09/04/17 09:44: Troponin I 0.997 H* 09/04/17 09:44: Hemoglobin A1c 6.5 H Rhythm: Sinus rhythm EKG: As noted above Stress Test: 2016: [place], [place]: Pharmacologic stress nuclear imaging study: Report stating no evidence of infarct or inducible ischemia Cardiac Cath: 2015: [place], [place]: Left ventricle normal with an LVEF of 65-70%; left main coronary artery with 50% stenosis; LAD with proximal 90% stenosis and mid 80% stenosis; LCx with diffuse 60% stenosis; RCA with mid 100% stenosis CT Surgery: 08/21/2015: [place], [place]: CABG with SHETH to the LAD, SVG to the OM, SVG to the PDA Assessment/Plan 1. Unstable angina pectoris/acute non-ST segment elevation MS The patient presents with symptoms concerning for unstable angina pectoris and objective findings compatible with an acute non-ST segment elevation MS. At the present time the patient is being monitored. She is continuing medical management. This has included a combination of aspirin, antiplatelet therapy, anticoagulant therapy, nitrates, beta-blockers, STELLA inhibitors, lipid-lowering agents, etc. The patient will be recommended for further evaluation with diagnostic cardiac catheterization and possible PCI. The procedure and risks were discussed with the patient. She was agreeable to this approach. 2. CAD status post CABG The patient has a history of underlying CAD as noted above. She has undergone previous noninvasive studies as noted above. She now presents with the aforementioned symptoms and objective findings. At the present time she will continue medical management. She will be considered for additional evaluation with diagnostic cardiac catheterization as noted above. 3. Hyperlipidemia The patient will continue lipid-lowering therapy. 4. Hypertension Patient will continue antihypertensive therapy as deemed appropriate. 5. COPD The patient will continue evaluation care per internal medicine for this. Comment: The above was discussed with the patient and the [facility] staff. This note was generated with [email or web address] dictation software. It may contain incorrect words, spelling, and punctuation that were not noted in checking the note before signing.
--- NOTE | 2017-09-04 13:13 | CON.PCM_ITS ---
Problem List (1) NSTEMI (non-ST elevated myocardial infarction) Status: Acute (2) CAD (coronary artery disease) Status: Chronic Qualifiers: Coronary Disease-Associated Artery/Lesion type: [place] artery [place] vs. transplanted heart: [place] heart Associated angina: with unstable angina Qualified Code(s): I25.110 - Atherosclerotic heart disease of [place] coronary artery with unstable angina pectoris (3) S/P CABG x 3 Status: Acute Comment: SHETH to LAD; SVG to OM; SVG to PDA (4) Hyperlipidemia Status: Chronic Qualifiers: Hyperlipidemia type: unspecified Qualified Code(s): E78.5 - Hyperlipidemia , unspecified (5) HTN (hypertension) Status: Chronic Qualifiers: Hypertension type: essential hypertension Qualified Code(s): I10 - Essential (primary) hypertension (6) COPD (chronic obstructive pulmonary disease) Status: Chronic Qualifiers: Emphysema type: unspecified Reason for Consult Date of Consultation: 09/04/17 History of Present Illness: The patient is a 71 year old female with a past cardiovascular history of underlying CAD, CABG, who proposed upon hyperlipidemia, hypertension, and COPD who presents for concerns of unstable angina pectoris and non-ST segment elevation OK. She notes that she has been having episodes of left-sided chest discomfort involving the left shoulder area, left back, and left neck/jaw area associated with shortness of breath/dyspnea. She has been using nitroglycerin sublingual for this. It does give her relief. Based upon ongoing concerns she presented to her local emergency department in [place], [place] yesterday for further evaluation. There she was noted to have an abnormal troponin I level. She was treated medically which included the initiation of IV heparin and subsequently transferred to 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 Richard Roger, is located at [facility]. Since being at [facility] she has had intermittent episodes of similar type symptoms. They have been treated with nitrates with improvement. She has denied orthopnea or PND or worsening peripheral pitting edema. She has denied near syncope or syncope. Her cardiac enzymes have been repeated and they have demonstrated abnormal troponin I levels which are now decreasing. Her ECG on admission demonstrated sinus rhythm with a septal OK pattern of indeterminate age. Repeat ECGs have demonstrated sinus rhythm/sinus tachycardia with a septal OK of indeterminate age as well as ST segment/T-wave abnormalities in the inferior/lateral leads potentially compatible with myocardial ischemia. [] Past Medical History Allergies/Adverse Reactions: Allergies bacitracin [From Neosporin ([id number])] Allergy (Severe, Verified 04/14/17 15:47) rash neomycin [From Neosporin ([id number])] Allergy (Severe, Verified 04/14/17 15: 47) rash Penicillins Allergy (Severe, Verified 04/14/17 15:47) rash polymyxin B [From Neosporin ([id number])] Allergy (Severe, Verified 04/14/17 15:47) rash Home Medications: Ambulatory Orders Medication Instructions Recorded aspirin 81 mg tablet,delayed 81 mg PO QDAY 04/14/17 release atorvastatin 80 mg tablet 80 mg PO QODAY 04/14/17 clopidogrel 75 mg tablet 75 mg PO ONCE 04/14/17 ezetimibe 10 mg tablet 10 mg PO QDAY 04/14/17 lisinopril 20 mg tablet 20 mg PO QDAY 04/14/17 metformin 1,000 mg tablet 1,000 mg PO BID 04/14/17 metoprolol succinate ER 100 mg 100 mg PO QDAY 04/14/17 tablet,extended release 24 hr nitroglycerin 0.4 mg sublingual 0.4 mg SUBLINGUAL Q5-15M PRN 04/14/17 tablet ranitidine 300 mg capsule 300 mg PO QHS 04/14/17 Levothyroxine Sodium 88 mcg PO DAILY 09/03/17 Past Medical History (Chronic Problems): Chronic Problems (Last Updated 04/14/17 @ 15:43 by IRINA Banegas) HTN (hypertension) (Chronic) COPD (chronic obstructive pulmonary disease) (Chronic) Hyperlipidemia (Chronic) Essential hypertension (Chronic) CAD (coronary artery disease) (Chronic) Surgical History: coronary bypass surgery - SHETH to LAD; SVG to OM; SVG to PDA - *Family History Maternal History Items: No pertinent history Lives: With Family Smoking Status: Former smoker Alcohol: None Drugs: None Review of Systems - Review of Systems General: Denies: Fever, Night Sweats, Fatigue Cardiovascular: Reports: Chest Discomfort, Chest Discomfort at Rest, Shortness of Breath, Shortness of Breath at Rest. Denies: Orthopnea, PND, Peripheral Edema, Palpitations, Lightheadedness, Dizziness, Near Syncope, Syncope Respiratory: Reports: Shortness of Breath. Denies: Cough, Sputum Production, Hemoptysis Gastrointestinal: Denies: Hematemesis, Hematochezia, Melena Genitourinary: Denies: Dysuria, Hematuria Skin: Denies: Rash Subjectve: This is a 71-year-old white female who appears to be resting comfortably at the moment on her current medical management. Objective: Vital Signs Temp Pulse Resp BP Pulse Ox 97.8 F 82 20 H 117/68 92 09/04/17 11:00 09/04/17 12:45 09/04/17 12:45 09/04/17 12:45 09/04/17 12:45 Oxygen Flow Rate (L/min) 2 Oxygen Delivery Method Room Air Weight: 160 lb 4.417 oz Body Mass Index (BMI) 26.6 Intake and Output for Last 24 Hours 09/02/17 09/03/17 09/04/17 23:59 23:59 23:59 Intake Total 2985 / 2985 Balance 2985 / 2985 General: Awake, Alert, Oriented x 3, Cooperative, No Acute Distress HEENT: Atraumatic, Normocephalic, PERRL, Sclera Non Icteric Neck: Supple, Good ROM, No JVD Lungs: Clear to auscultation Cardiovascular: Regular Rhythm, Normal S1, Normal S2 Murmur Murmur: Grade 2/6, Soft, Mid Systolic, LLSB Vascular: No Carotid Bruits Abdomen: Bowel Sounds Present, Soft, Non Tender Extremities: No Cyanosis, No Clubbing, No edema Neurological: No Focal Motor or Sensory Deficit 09/03/17 22:50: Lactic Acid 2.2 H 09/03/17 22:50: APTT Cancelled 09/03/17 22:50: Troponin I 1.660 H* 09/04/17 01:22: Troponin I 2.090 H* 09/04/17 01:22: APTT 210.5 H* 09/04/17 03:38: WBC 14.2 H, RBC 4.01 L, Hgb 12.1, Hct 35.8 L, MCV 89.3, MCH 30.2 , MCHC 33.8, RDW 13.6, RDW Differential 43.6, Plt Count 296, MPV 9.2 09/04/17 03:38: Sodium 141, Potassium 4.4, Chloride 108 H, Carbon Dioxide 23.0, Anion Gap 10, BUN 22 H, Creatinine 0.76, Est GFR (MDRD) Af Amer 96, Est GFR ( MDRD) Non-Af 79, BUN/Creatinine Ratio 28.9 H, Glucose 171 H, Calcium 8.4 L, Total Bilirubin 0.20, Triglycerides 127, Cholesterol 175, LDL Cholesterol 83, VLDL Cholesterol 25, HDL Cholesterol 67 09/04/17 03:38: Troponin I 1.860 H* 09/04/17 03:38: Lactic Acid 2.6 H 09/04/17 08:15: APTT 79.6 H 09/04/17 09:44: Lactic Acid 4.6 H* 09/04/17 09:44: Troponin I 0.997 H* 09/04/17 09:44: Hemoglobin A1c 6.5 H Rhythm: Sinus rhythm EKG: As noted above Stress Test: 2016: [place], [place]: Pharmacologic stress nuclear imaging study: Report stating no evidence of infarct or inducible ischemia Cardiac Cath: 2015: [place], [place]: Left ventricle normal with an LVEF of 65-70%; left main coronary artery with 50% stenosis; LAD with proximal 90% stenosis and mid 80% stenosis; LCx with diffuse 60% stenosis; RCA with mid 100% stenosis CT Surgery: 08/21/2015: [place], [place]: CABG with SHETH to the LAD , SVG to the OM, SVG to the PDA Assessment/Plan 1. Unstable angina pectoris/acute non-ST segment elevation OK The patient presents with symptoms concerning for unstable angina pectoris and objective findings compatible with an acute non-ST segment elevation OK. At the present time the patient is being monitored. She is continuing medical management. This has included a combination of aspirin, antiplatelet therapy, anticoagulant therapy, nitrates, beta-blockers, STELLA inhibitors, lipid-lowering agents, etc. The patient will be recommended for further evaluation with diagnostic cardiac catheterization and possible PCI. The procedure and risks were discussed with the patient. She was agreeable to this approach. 2. CAD status post CABG The patient has a history of underlying CAD as noted above. She has undergone previous noninvasive studies as noted above. She now presents with the aforementioned symptoms and objective findings. At the present time she will continue medical management. She will be considered for additional evaluation with diagnostic cardiac catheterization as noted above. 3. Hyperlipidemia The patient will continue lipid-lowering therapy. 4. Hypertension Patient will continue antihypertensive therapy as deemed appropriate. 5. COPD The patient will continue evaluation care per internal medicine for this. Comment: The above was discussed with the patient and the [facility] staff. This note was generated with [employer] dictation software. It may contain incorrect words, spelling, and punctuation that were not noted in checking the note before signing.
[2017-09-04 14:05] LABS: Reflex Lactate? Y
[2017-09-04 14:55] LABS: Partial Thromboplast Time 68.1 Seconds (24.1-36.2)
[2017-09-04 15:16] LABS: Lactic Acid 3.7 mmol/L (0.4-2.0)
[2017-09-04 15:51] LABS: Bacteria 0 SEEN /hpf (None Seen); Mucous, Urine 0 SEEN /hpf (<or=2+); Red Blood Cells-Urine 0 SEEN /hpf (0-5)
[2017-09-04 15:54] LABS: Color, Urine Straw (Yellow); Glucose, Dipstick 1000 mg/dl (Normal); Ketone-Dipstick Negative (Negative); Leukocyte Esterase-Dipstick Negative /ul (Negative); Nitrite-Dipstick Negative (Negative); Occult Blood-Urine Negative /ul (Negative); Protein-Dipstick Negative (Negative); Urine Bilirubin Dipstick Negative (Negative); Urine Clarity Clear (Clear); Urine Urobilinogen Normal (Normal)
[2017-09-04 16:01] LABS: Squamous Epithelial Cells - UA 0-5 SEEN /hpf (5-10)
[2017-09-04 16:02] LABS: White Blood Cells 0-5 SEEN /hpf (0-5)
[2017-09-04 16:26] LABS: Bedside Glucose 211 mg/dL (70-110)
[2017-09-04] MEDS: HEPARIN/D5w 25,000 UNITS 25,000 UNITS/250 ML IV.SOLN. 9.8 UNITS IV (18:24)
[2017-09-04 21:02] LABS: Partial Thromboplast Time 66.9 Seconds (24.1-36.2)
[2017-09-04] MEDS: Atorvastatin Calcium 80 MG Tablet PO (21:55)
[2017-09-04] MEDS: Famotidine 20 MG Tablet 40 MG PO (21:56)
[2017-09-04] MEDS: Acetaminophen 325 MG Tablet 650 MG PO (22:01)
[2017-09-04 22:20] LABS: Bedside Glucose 311 mg/dL (70-110)
[2017-09-05] VITALS (50 sets, daily range): BP systolic 108–173; BP diastolic 53–94; PULSE 69–99; RESP 12–23; TEMP 36.3–37; O2SAT 92–99
[2017-09-05] MEDS: Ipratropium/Albuterol Sulfate 3 ML AMPUL.NEB INHALATION ×5 (03:03→22:36)
[2017-09-05 05:25] LABS: International Normalized Ratio 1.1; Prothrombin Time (Protime)PT. 13.9 SECONDS (11.7-14.9)
[2017-09-05 05:26] LABS: Absolute Lymphocyte Count 1.34 X10^3/ul (0.83-4.51); Absolute Neutrophil Count 13.4 X10^3/uL (2.0-7.7); Hematocrit 32.9 % (37-47); Hemoglobin 10.8 g/dl (12.0-15.0); Lymphocyte # 1.34 X10^3/ul (4.0); Lymphocyte % 8.7 % (19-41); Mean Corp Hgb Conc 32.8 g/gl (32-36); Mean Corpuscular Hgb 29.2 pg (27.0-32.0); Mean Corpuscular Volume 88.9 fL (81-99); Mean Platelet Vol. 8.8 fl (6.2-12.0); Monocyte# 0.72 X10^3/uL; Monocyte% 4.6 % (0-10); Neutrophil # 13.39 X10^3/uL (2.7-7.7); Neutrophil % 86.4 % (47-70); Partial Thromboplast Time 45.6 Seconds (24.1-36.2); Platelet Count 309 K/mm3 (150-450); RBC Distribution Width CV 13.9 % (11.6-14.6); RBC Distribution Width SD 45.2 fl (35.1-43.9); White Blood Count 15.5 K/mm3 (4.4-11.0)
[2017-09-05 05:32] LABS: Anion Gap 11 (5-15); BUN 19 mg/dL (7-18); BUN/Creat Ratio 24.8 RATIO (10-20); Calcium,Total 8.4 mg/dL (8.5-10.1); Chloride 110 mmol/L (98-107); Creatinine, Serum 0.77 mg/dL (0.55-1.02); EST Glomerular Filtration Rate 79 mL/min (>60); Est Glom Filt Rate - Afr Amer 95 mL/min (>60); Estimated Creatinine Clearance 46.43 ml/min; Glucose 192 mg/dL (74-106); Sodium Level 144 mmol/L (136-145)
--- NOTE | 2017-09-05 05:55 | EKG12_ITS ---
Test Reason : AM EKG Blood Pressure : / mmHG Vent. Rate : 077 BPM Atrial Rate : 077 BPM P-R Int : 160 ms QRS Dur : 076 ms QT Int : 396 ms P-R-T Axes : 069 061 099 degrees QTc Int : 448 ms Normal sinus rhythm Nonspecific ST abnormality Abnormal ECG When compared with ECG of 04-SEP-2017 09:10, MANUAL COMPARISON REQUIRED, DATA IS UNCONFIRMED Confirmed by FILEMON ÁLVAREZ, NUHA ([id number]), book or script editor RUSSELL BASURTO ([id number]) on 09/06/2017 3:20:47 PM Referred By: SAUL Confirmed By:NUHA COLBERT MD
[2017-09-05 06:15] LABS: POSITIVE COUNT NO; POSITIVE DIFFERENTIAL NO; POSITIVE MORPHOLOGY NO
[2017-09-05] MEDS: Metoprolol Tartrate 50 MG Tablet PO ×2 (06:31→21:07)
[2017-09-05] MEDS: Aspirin E.C. 81 MG Tablet PO (06:32)
[2017-09-05] MEDS: Clopidogrel Bisulfate 75 MG Tablet PO (06:32)
[2017-09-05] MEDS: predniSONE 20 MG Tablet 40 MG PO (06:32)
[2017-09-05] MEDS: Levothyroxine 88 MCG Tablet PO (06:32)
[2017-09-05] MEDS: Lisinopril 20 MG Tablet PO (06:32)
[2017-09-05] MEDS: LORazepam 1 MG Tablet PO (06:36)
[2017-09-05 07:05] LABS: Bedside Glucose 170 mg/dL (70-110)
[2017-09-05] MEDS: 0.9% Normal Saline 1,000 ML 100 ML IV ×2 (07:23→17:16)
--- NOTE | 2017-09-05 08:58 | CT_ITS ---
STUDY: CTA CHEST REASON FOR EXAM: Female, 71 years old. Possible subclavian dissection during heart catheterization. RADIATION DOSAGE (If Supplied By Facility): CTDIvol = ( 14.12 ) mGy, DLP = ( 500.08 ) mGycm TECHNIQUE: The examination was performed with the intravenous administration of 75 ml of Isovue 370 contrast material. Post-processing of the angiographic images was performed, with multiplanar reformation and 3D reconstruction. Individualized dose optimization techniques were used for this CT. COMPARISON: None. FINDINGS: Normal enhancement of the main pulmonary artery and right and left pulmonary arteries. Normal enhancement of the bilateral peripheral pulmonary arteries. There is no demonstrated pulmonary embolism. There is atherosclerotic calcification of the aortic arch with tortuosity. I suspect a curvilinear contrast collection in the posterior aspect of the aortic arch. This may represent a subintimal injection. There is no evidence of dissection. There is no demonstrated aortic dissection. Sternal cerclage wires and vascular clips are present from a prior sternotomy and coronary artery bypass graft procedure (CABG). There are calcifications of the coronary arteries. Normal mediastinum. Normal hilar regions. Normal visualized trachea and bronchi. Hyperinflation. Diffuse emphysematous changes with cystic changes worse in the upper lobes. There is evidence of a increased linear markings at the lung bases suggestive of scarring. No focal infiltration is seen. Mild degree of bibasilar atelectasis. Normal pleura. Normal chest wall structures. There are degenerative changes of thoracic spine. The patient is status post cholecystectomy. There is a mild degree of hyperplasia of the left adrenal gland. CT/CTA Chest W/WO Contrast IMPRESSION: Findings suggestive of focal contrast collection along the posterior aspect of the aortic arch suggestive of a possible focal subintimal contrast injection. There is no evidence of dissection. Emphysematous changes and scarring. Electronically Signed: Dima Sanches MD at 10:17 EDT Tel [phone], Service support ,
--- NOTE | 2017-09-05 09:11 | PCM.PN.CARD ---
Subjectve: Patient seen and evaluated. Appears to be stable with no pain. Objective: Vital Signs Temp Pulse Resp BP Pulse Ox 98.6 F 71 18 129/68 H 95 09/05/17 07:00 09/05/17 08:00 09/05/17 08:00 09/05/17 08:00 09/05/17 08:00 Oxygen Flow Rate (L/min) 2 Oxygen Delivery Method Nasal Cannula Weight: 160 lb 4.417 oz Body Mass Index (BMI) 26.6 Intake and Output for Last 24 Hours 09/03/17 09/04/17 09/05/17 23:59 23:59 23:59 Intake Total 5517 / 5517 505 / 505 Balance 5517 / 5517 505 / 505 General: Awake, Alert, Oriented x 3 HEENT: PERRL, EOMI, Sclera Non Icteric Neck: Supple, Good ROM, No Lymph Node Enlargement Lungs: Clear to auscultation Cardiovascular: Regular Rhythm, Normal S1, Normal S2, No Murmurs, No Rubs, No Gallops Vascular: No Carotid Bruits, Normal Femoral Pulses, Normal Radial Pulses, Normal Dorsalis Pedal Pulse, Normal Posterior Tibial Pulses Abdomen: Bowel Sounds Present, Soft, Non Tender, No HSM, No Organomegaly Extremities: No Cyanosis, No Clubbing, No edema Neurological: No Focal Motor or Sensory Deficit 09/04/17 09:44: Lactic Acid 4.6 H* 09/04/17 09:44: Troponin I 0.997 H* 09/04/17 09:44: Hemoglobin A1c 6.5 H 09/04/17 14:35: APTT 68.1 H 09/04/17 14:38: Lactic Acid 3.7 H 09/04/17 15:45: Urine Color Straw, Urine Clarity Clear, Urine pH 6.0, Ur Specific [place] 1.010, Urine Protein Negative, Urine Glucose (UA) 1000 H, Urine Ketones Negative, Urine Occult Blood Negative, Urine Nitrite Negative, Urine Bilirubin Negative, Urine Urobilinogen Normal, Ur Leukocyte Esterase Negative, Urine RBC 0 SEEN, Urine WBC 0-5 SEEN 09/04/17 20:30: APTT 66.9 H 09/05/17 05:00: WBC 15.5 H, RBC 3.70 L, Hgb 10.8 L, Hct 32.9 L, MCV 88.9, MCH 29.2, MCHC 32.8, RDW 13.9, RDW Differential 45.2 H, Plt Count 309, MPV 8.8, Immature Gran % (Auto) 0.300, Neut % (Auto) 86.4 H, Lymph % (Auto) 8.7 L, [place] % (Auto) 4.6, Eos % (Auto) 0.0, Baso % (Auto) 0.0, Absolute Neuts (auto) 13.4 H, Total Counted Not Reportable 09/05/17 05:00: Sodium 144, Potassium 4.0, Chloride 110 H, Carbon Dioxide 23.0, Anion Gap 11, BUN 19 H, Creatinine 0.77, Est GFR (MDRD) Af Amer 95, Est GFR (MDRD) Non-Af 79, BUN/Creatinine Ratio 24.8 H, Glucose 192 H, Calcium 8.4 L 09/05/17 05:00: Lactic Acid 3.0 H 09/05/17 05:00: PT 13.9, INR 1.1, APTT 45.6 H Rhythm: EKG: ECHO: Stress Test: Cardiac Cath: PCI: CT Surgery: Holter monitor: EPS: PPM: CXR: Chest CT Scan: Medical Necessity - Tobacco Use Smoking Status: Former smoker Assessment/Plan 1. Non-ST elevation myocardial infarction. The patient underwent a cardiac catheterization this morning which demonstrated the following: Distal left main coronary artery with 50% stenosis. Left anterior descending artery with proximal 99% stenosis. First diagonal vessel with 70% ostial stenosis. Proximal left circumflex artery calcified with 99% stenosis. Left to right collaterals filling distal right coronary artery. Dominant right coronary artery totally occluded proximally. Saphenous vein graft to right coronary artery which is totally occluded. Saphenous vein graft to the obtuse marginal branch which is patent. Left internal mammary artery was not engaged but presumably patent. Due to competitive flow. In attempting to engage or advance into the left internal mammary artery through the subclavian vein appeared to be localized staining of the aorta. The above is likely secondary to a localized dissection. Would obtain a CAT scan of the chest with contrast to ascertain that the origin of the left subclavian artery is patent. Next Patient is currently pain-free. Would recommend aggressive blood pressure management with intravenous nitroglycerin, beta-toña and STELLA inhibitor. Would discontinue Plavix for now and treat medically. Next obtain echocardiogram to assess left ventricular function. 2. Hypertension Managed blood pressure aggressively with intravenous nitroglycerin as well as oral beta-toña. Particular time patient is being transported to the CAT scan unit and is pain-free and with stable hemodynamics. The patient will be observed overnight in the intensive care unit. Depending on the results accommodations will be made with notification of the vascular surgeon.
[2017-09-05 09:13] LABS: Reflex Lactate? Y
--- NOTE | 2017-09-05 09:14 | PN.CARD_ITS ---
Subjectve: Patient seen and evaluated. Appears to be stable with no pain. Objective: Vital Signs Temp Pulse Resp BP Pulse Ox 98.6 F 71 18 129/68 H 95 09/05/17 07:00 09/05/17 08:00 09/05/17 08:00 09/05/17 08:00 09/05/17 08:00 Oxygen Flow Rate (L/min) 2 Oxygen Delivery Method Nasal Cannula Weight: 160 lb 4.417 oz Body Mass Index (BMI) 26.6 Intake and Output for Last 24 Hours 09/03/17 09/04/17 09/05/17 23:59 23:59 23:59 Intake Total 5517 / 5517 505 / 505 Balance 5517 / 5517 505 / 505 General: Awake, Alert, Oriented x 3 HEENT: PERRL, EOMI, Sclera Non Icteric Neck: Supple, Good ROM, No Lymph Node Enlargement Lungs: Clear to auscultation Cardiovascular: Regular Rhythm, Normal S1, Normal S2, No Murmurs, No Rubs, No Gallops Vascular: No Carotid Bruits, Normal Femoral Pulses, Normal Radial Pulses, Normal Dorsalis Pedal Pulse, Normal Posterior Tibial Pulses Abdomen: Bowel Sounds Present, Soft, Non Tender, No HSM, No Organomegaly Extremities: No Cyanosis, No Clubbing, No edema Neurological: No Focal Motor or Sensory Deficit 09/04/17 09:44: Lactic Acid 4.6 H* 09/04/17 09:44: Troponin I 0.997 H* 09/04/17 09:44: Hemoglobin A1c 6.5 H 09/04/17 14:35: APTT 68.1 H 09/04/17 14:38: Lactic Acid 3.7 H 09/04/17 15:45: Urine Color Straw, Urine Clarity Clear, Urine pH 6.0, Ur Specific [place] 1.010, Urine Protein Negative, Urine Glucose (UA) 1000 H, Urine Ketones Negative, Urine Occult Blood Negative, Urine Nitrite Negative, Urine Bilirubin Negative, Urine Urobilinogen Normal, Ur Leukocyte Esterase Negative, Urine RBC 0 SEEN, Urine WBC 0-5 SEEN 09/04/17 20:30: APTT 66.9 H 09/05/17 05:00: WBC 15.5 H, RBC 3.70 L, Hgb 10.8 L, Hct 32.9 L, MCV 88.9, MCH 29.2, MCHC 32.8, RDW 13.9, RDW Differential 45.2 H, Plt Count 309, MPV 8.8, Immature Gran % (Auto) 0.300, Neut % (Auto) 86.4 H, Lymph % (Auto) 8.7 L, [place] % (Auto) 4.6, Eos % (Auto) 0.0, Baso % (Auto) 0.0, Absolute Neuts (auto) 13.4 H , Total Counted Not Reportable 09/05/17 05:00: Sodium 144, Potassium 4.0, Chloride 110 H, Carbon Dioxide 23.0, Anion Gap 11, BUN 19 H, Creatinine 0.77, Est GFR (MDRD) Af Amer 95, Est GFR ( MDRD) Non-Af 79, BUN/Creatinine Ratio 24.8 H, Glucose 192 H, Calcium 8.4 L 09/05/17 05:00: Lactic Acid 3.0 H 09/05/17 05:00: PT 13.9, INR 1.1, APTT 45.6 H Rhythm: EKG: ECHO: Stress Test: Cardiac Cath: PCI: CT Surgery: Holter monitor: EPS: PPM: CXR: Chest CT Scan: Medical Necessity - Tobacco Use Smoking Status: Former smoker Assessment/Plan 1. Non-ST elevation myocardial infarction. The patient underwent a cardiac catheterization this morning which demonstrated the following: Distal left main coronary artery with 50% stenosis. Left anterior descending artery with proximal 99% stenosis. First diagonal vessel with 70% ostial stenosis. Proximal left circumflex artery calcified with 99% stenosis. Left to right collaterals filling distal right coronary artery. Dominant right coronary artery totally occluded proximally. Saphenous vein graft to right coronary artery which is totally occluded. Saphenous vein graft to the obtuse marginal branch which is patent. Left internal mammary artery was not engaged but presumably patent. Due to competitive flow. In attempting to engage or advance into the left internal mammary artery through the subclavian vein appeared to be localized staining of the aorta. The above is likely secondary to a localized dissection. Would obtain a CAT scan of the chest with contrast to ascertain that the origin of the left subclavian artery is patent. Next Patient is currently pain-free. Would recommend aggressive blood pressure management with intravenous nitroglycerin, beta-toña and STELLA inhibitor. Would discontinue Plavix for now and treat medically. Next obtain echocardiogram to assess left ventricular function. 2. Hypertension Managed blood pressure aggressively with intravenous nitroglycerin as well as oral beta-toña. Particular time patient is being transported to the CAT scan unit and is pain- free and with stable hemodynamics. The patient will be observed overnight in the intensive care unit. Depending on the results accommodations will be made with notification of the vascular surgeon.
--- NOTE | 2017-09-05 09:24 | CL.D_ITS ---
Patient Name: BROCK RESENDEZ Study Date: 09/05/2017 Performing: Richard Roger MD Ht: 65 inches 165 cm : 1945 Wt: 161.1 lbs 73 kg Age: 71 Gender: female BSA: 1.8 PROCEDURE(S) PERFORMED [id number]/COR/CABG CLINICAL PROFILE AND INDICATIONS Indications: Worsening Angina Heart Failure: None Stress/Imaging Stress/Image Study Performed: No CONCLUSIONS Severe [place] vessel disease involving the right coronary artery circumflex artery and left anterior descending artery. RECOMMENDATIONS Medical therapy CT scan of chest. DESCRIPTION OF PROCEDURE The patient arrived to the procedure lab. The risks and benefits of the procedure as well as a full d escription of our services here and current unavailability of surgical backup were fully explained to the patient and/or their significant other prior to the catheterization. The Timeout was completed, verifying the correct patient and procedure. The patient's procedural site was prepped and draped in the usual fashion. Local anesthetic was given subcutaneously to right groin region with Lidocaine 2%. Using a modified Seldinger technique, arterial access was obtained via the right femoral artery, a 5 Fr sheath was inserted. Left Coronary Artery selective angiography was performed in multiple views u sing a 5 Fr. JL4 catheter. Right Coronary Artery selective angiography was then performed in multiple views using a 5 Fr. 3DRC (Maurilio) catheter. Saphenous Vein graft to the OM 1 selective angiography was performed in multiple views using a 5 Fr. JR 4 catheter. Saphenous Vein graft to the RPDA select rosalva angiography was performed in multiple views using a 5 Fr. 3DRC (Maurilio) catheter. Left Coronary Artery selective angiography was performed in multiple views using a 5 Fr. JL4 catheter.The arterial sheath was sutured in place and capped CORONARY ANGIOGRAPHY DOMINANCE: Right Dominant LEFT HEART ASSESSMENT Left Ventricular Ejection Fraction: Not assessed LEFT MAIN: Moderate calcification, 50 % Stenosis LEFT ANTERIOR DECENDING ARTERY: PROX LAD: 99 % Stenosis CIRCUMFLEX ARTERY: PROX CIRC: 99 % Stenosis RIGHT CORONARY ARTERY: PROX RCA: is occluded GRAFTS: Sequential graft to the RCA Saphenous Vein graft to the Distal CIRC is patent COLLATERAL FLOW: Collateral flow from Left to Right AORTIC ROOT: Atherosclerotic Mild staining of the arch of the aorta noted. Attempts to advance to the subclavian COMPLICATIONS No Complications PROCEDURE MEDICATIONS Versed 1 mg IV Oxygen: 2 L/min via nasal cannula Nitro glycerin 25mg / 250ml D5W @ 20mcq from [facility] 09/05/2017 08:27:22 SUMMARY OF HEMODYNAMIC DATA Time AIR REST ECG 08:22:26 AO 133/62 (91) SA 08:34:53 Signed By Richard Roger MD On 09/05/2017 09:23:25 Richard Roger MD
[2017-09-05 11:04] LABS: Lactic Acid 2.9 mmol/L (0.4-2.0)
--- NOTE | 2017-09-05 12:19 | PCM.PROGNOTE ---
<Viktor Newsome - Last Filed: 09/05/17 12:19> Patient Problems: Active and Suspected Problems (Last Updated 04/14/17 @ 15:43 by IRINA Banegas) NSTEMI (non-ST elevated myocardial infarction) (Acute) COPD exacerbation (Acute) Lactate blood increase (Acute) S/P CABG x 3 (Acute) SHETH to LAD; SVG to OM; SVG to PDA Subjective: Pt resting comfortably in bed s/p cath. No intervention done. No CP/pressure/tightness/SOB/LH/dizziness/palp/nausea/sweating. - Physical Exam General: Alert, Oriented x3, Cooperative HEENT: Atraumatic, PERRLA, EOMI, Normocephalic Neck: Supple, No JVD, Negative Carotid Bruits Lungs: Clear to auscultation, Normal air movement Cardiovascular: Regular rate, No murmurs Abdomen: Bowel Sounds Present, Soft, Non Tender Extremities: No edema, Capillary Refill Less than 3 Seconds Skin: No rashes, No breakdown Musculoskeletal: No Tenderness to Palpation of Joints or Extremities Neurological: Cranial nerves II-XII grossly intact Psych/Mental Status: Normal Affect, Appropriate, Alert and oriented to time, place, person, mood and affect Vital Signs Temp Pulse Resp BP Pulse Ox 97.4 F L 74 18 135/69 H 96 09/05/17 09:45 09/05/17 11:18 09/05/17 11:18 09/05/17 10:00 09/05/17 11:18 Oxygen Flow Rate (L/min) 3 Oxygen Delivery Method Nasal Cannula Weight: 72.7 kg Body Mass Index (BMI) 26.6 Intake and Output for Last 24 Hours 09/03/17 09/04/17 09/05/17 23:59 23:59 23:59 Intake Total 5517 / 5517 505 / 505 Balance 5517 / 5517 505 / 505 Microbiology Past 72 Hours 09/03/17 22:50 Influenza Types A,B Direct FA (JASKARAN) - Final Mucosa - Nose Laboratory Tests Past 24 Hrs 09/04/17 09/04/17 09/04/17 14:35 14:38 15:45 WBC RBC Hgb Hct MCV MCH MCHC RDW RDW Differential Plt Count MPV Immature Gran % (Auto) Neut % (Auto) Lymph % (Auto) [place] % (Auto) Eos % (Auto) Baso % (Auto) Absolute Neuts (auto) Absolute Lymphs (auto) Total Counted PT INR APTT 68.1 H Sodium Potassium Chloride Carbon Dioxide Anion Gap BUN Creatinine Estim Creat Clear Calc Est GFR (MDRD) Af Amer Est GFR (MDRD) Non-Af BUN/Creatinine Ratio Glucose Lactic Acid 3.7 H Calcium Urine Color Straw Urine Clarity Clear Urine pH 6.0 Ur Specific [place] 1.010 Urine Protein Negative Urine Glucose (UA) 1000 H Urine Ketones Negative Urine Occult Blood Negative Urine Nitrite Negative Urine Bilirubin Negative Urine Urobilinogen Normal Ur Leukocyte Esterase Negative Urine RBC 0 SEEN Urine WBC 0-5 SEEN Ur Squamous Epith Cells 0-5 SEEN Urine Bacteria 0 SEEN Urine Mucus 0 SEEN MRSA (PCR) 09/04/17 09/05/17 09/05/17 20:30 05:00 05:00 WBC 15.5 H RBC 3.70 L Hgb 10.8 L Hct 32.9 L MCV 88.9 MCH 29.2 MCHC 32.8 RDW 13.9 RDW Differential 45.2 H Plt Count 309 MPV 8.8 Immature Gran % (Auto) 0.300 Neut % (Auto) 86.4 H Lymph % (Auto) 8.7 L [place] % (Auto) 4.6 Eos % (Auto) 0.0 Baso % (Auto) 0.0 Absolute Neuts (auto) 13.4 H Absolute Lymphs (auto) 1.34 Total Counted Not Reportable PT INR APTT 66.9 H Sodium 144 Potassium 4.0 Chloride 110 H Carbon Dioxide 23.0 Anion Gap 11 BUN 19 H Creatinine 0.77 Estim Creat Clear Calc 46.43 Est GFR (MDRD) Af Amer 95 Est GFR (MDRD) Non-Af 79 BUN/Creatinine Ratio 24.8 H Glucose 192 H Lactic Acid Calcium 8.4 L Urine Color Urine Clarity Urine pH Ur Specific [place] Urine Protein Urine Glucose (UA) Urine Ketones Urine Occult Blood Urine Nitrite Urine Bilirubin Urine Urobilinogen Ur Leukocyte Esterase Urine RBC Urine WBC Ur Squamous Epith Cells Urine Bacteria Urine Mucus MRSA (PCR) 09/05/17 09/05/17 09/05/17 05:00 05:00 10:00 WBC RBC Hgb Hct MCV MCH MCHC RDW RDW Differential Plt Count MPV Immature Gran % (Auto) Neut % (Auto) Lymph % (Auto) [place] % (Auto) Eos % (Auto) Baso % (Auto) Absolute Neuts (auto) Absolute Lymphs (auto) Total Counted PT 13.9 INR 1.1 APTT 45.6 H Sodium Potassium Chloride Carbon Dioxide Anion Gap BUN Creatinine Estim Creat Clear Calc Est GFR (MDRD) Af Amer Est GFR (MDRD) Non-Af BUN/Creatinine Ratio Glucose Lactic Acid 3.0 H Calcium Urine Color Urine Clarity Urine pH Ur Specific [place] Urine Protein Urine Glucose (UA) Urine Ketones Urine Occult Blood Urine Nitrite Urine Bilirubin Urine Urobilinogen Ur Leukocyte Esterase Urine RBC Urine WBC Ur Squamous Epith Cells Urine Bacteria Urine Mucus MRSA (PCR) Pending 09/05/17 10:20 WBC RBC Hgb Hct MCV MCH MCHC RDW RDW Differential Plt Count MPV Immature Gran % (Auto) Neut % (Auto) Lymph % (Auto) [place] % (Auto) Eos % (Auto) Baso % (Auto) Absolute Neuts (auto) Absolute Lymphs (auto) Total Counted PT INR APTT Sodium Potassium Chloride Carbon Dioxide Anion Gap BUN Creatinine Estim Creat Clear Calc Est GFR (MDRD) Af Amer Est GFR (MDRD) Non-Af BUN/Creatinine Ratio Glucose Lactic Acid 2.9 H Calcium Urine Color Urine Clarity Urine pH Ur Specific [place] Urine Protein Urine Glucose (UA) Urine Ketones Urine Occult Blood Urine Nitrite Urine Bilirubin Urine Urobilinogen Ur Leukocyte Esterase Urine RBC Urine WBC Ur Squamous Epith Cells Urine Bacteria Urine Mucus MRSA (PCR) POC Glucose 09/05/17 09/04/17 09/04/17 06:58 21:54 16:20 POC Glucose 170 H 311 H 211 H Medical Necessity - Tobacco Use Smoking Status: Former smoker Assessment/Plan Active and Suspected Problems (Last Updated 04/14/17 @ 15:43 by IRINA Banegas) NSTEMI (non-ST elevated myocardial infarction) (Acute) COPD exacerbation (Acute) Lactate blood increase (Acute) S/P CABG x 3 (Acute) SHETH to LAD; SVG to OM; SVG to PDA 1. NSTEMI - s/p cath no intervention. Currently no CP. Findings as per cardiology note. Some staining of aorta during cath, CTA negative for dissection. Pt will have echocardiogram. Continue Asa/plavix/statin/BB/ACEI/Nitro. [place] trending down. 2. Hx CAD with prior CABG x 3 2015 3. HLD - statin and zetia 4. COPD exacerbation - prednisone, aerosols. No SOB. CTA neg. 5. DMt2 - Hold metformin x 3 days. A1C 6.5. Consider additional agent at DC. DVT ppx: Heparin DC planning: monitor overnight. This patient was seen by Viktor Newsome PA-C under the supervision of Doctor Monica. <Alvaro Anderson - Last Filed: 09/05/17 16:27> - Physical Exam Vital Signs Temp Pulse Resp BP Pulse Ox 97.4 F L 96 23 H 146/68 H 97 09/05/17 12:00 09/05/17 15:00 09/05/17 15:00 09/05/17 15:00 09/05/17 15:00 Oxygen Flow Rate (L/min) 2 Oxygen Delivery Method Nasal Cannula Weight: 72.7 kg Body Mass Index (BMI) 26.6 Intake and Output for Last 24 Hours 09/03/17 09/04/17 09/05/17 23:59 23:59 23:59 Intake Total 5517 / 5517 1026 / 1026 Balance 5517 / 5517 1026 / 1026 Microbiology Past 72 Hours 09/03/17 22:50 Influenza Types A,B Direct FA (JASKARAN) - Final Mucosa - Nose Laboratory Tests Past 24 Hrs 09/04/17 09/05/17 09/05/17 20:30 05:00 05:00 WBC 15.5 H RBC 3.70 L Hgb 10.8 L Hct 32.9 L MCV 88.9 MCH 29.2 MCHC 32.8 RDW 13.9 RDW Differential 45.2 H Plt Count 309 MPV 8.8 Immature Gran % (Auto) 0.300 Neut % (Auto) 86.4 H Lymph % (Auto) 8.7 L [place] % (Auto) 4.6 Eos % (Auto) 0.0 Baso % (Auto) 0.0 Absolute Neuts (auto) 13.4 H Absolute Lymphs (auto) 1.34 Total Counted Not Reportable PT INR APTT 66.9 H Sodium 144 Potassium 4.0 Chloride 110 H Carbon Dioxide 23.0 Anion Gap 11 BUN 19 H Creatinine 0.77 Estim Creat Clear Calc 46.43 Est GFR (MDRD) Af Amer 95 Est GFR (MDRD) Non-Af 79 BUN/Creatinine Ratio 24.8 H Glucose 192 H Lactic Acid Calcium 8.4 L MRSA (PCR) 09/05/17 09/05/17 09/05/17 05:00 05:00 10:00 WBC RBC Hgb Hct MCV MCH MCHC RDW RDW Differential Plt Count MPV Immature Gran % (Auto) Neut % (Auto) Lymph % (Auto) [place] % (Auto) Eos % (Auto) Baso % (Auto) Absolute Neuts (auto) Absolute Lymphs (auto) Total Counted PT 13.9 INR 1.1 APTT 45.6 H Sodium Potassium Chloride Carbon Dioxide Anion Gap BUN Creatinine Estim Creat Clear Calc Est GFR (MDRD) Af Amer Est GFR (MDRD) Non-Af BUN/Creatinine Ratio Glucose Lactic Acid 3.0 H Calcium MRSA (PCR) Negative 09/05/17 10:20 WBC RBC Hgb Hct MCV MCH MCHC RDW RDW Differential Plt Count MPV Immature Gran % (Auto) Neut % (Auto) Lymph % (Auto) [place] % (Auto) Eos % (Auto) Baso % (Auto) Absolute Neuts (auto) Absolute Lymphs (auto) Total Counted PT INR APTT Sodium Potassium Chloride Carbon Dioxide Anion Gap BUN Creatinine Estim Creat Clear Calc Est GFR (MDRD) Af Amer Est GFR (MDRD) Non-Af BUN/Creatinine Ratio Glucose Lactic Acid 2.9 H Calcium MRSA (PCR) POC Glucose 09/05/17 09/05/17 09/04/17 13:16 06:58 21:54 POC Glucose 147 H 170 H 311 H 09/04/17 16:20 POC Glucose 211 H Assessment/Plan This patient was seen in conjunction withViktro Newsome PA-C. I have independently interviewed and examined the patient and reviewed pertinent historical, laboratory, and other data. Please refer to Viktor Newsome PA-C note for details of this patient's presentation, findings, and recommendations. I have reviewed Viktor Newsome PA-C note and concur with documented findings. In brief, patient is a 71-year-old lady admitted with pain found to have acute non-ST TX underwent left heart catheterization on 09/05/2017 which demonstrated; Distal left main coronary artery with 50% stenosis; Left anterior descending artery with proximal 99% stenosis; First diagonal vessel with 70% ostial stenosis; Proximal left circumflex artery calcified with 99% stenosis. Physical Examination: GENERAL: cooperative HEENT: Clear conjunctiva, NECK; supple, normal thyroid, CHEST: Diminished to auscultation bilaterally, HEART: Regular S1 S2, no audible murmurs ABDOMEN: soft, non-tender, normoactive bowel sounds, RECTAL: deferred EXTREMITIES: No edema, no clubbing, no cyanosis. 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 SKIN: No Rash Assessment: 1. Unstable angina underwent left heart catheterization with results as above 2. CAD with previous CABG 3. COPD with mild exacerbation 4. Diabetes mellitus type 2 5. Dyslipidemia Recommendations: 1. I have discussed the results of my overview and impressions with the patient 2. Options for management were reviewed Code Visit Inpatient E&M: 55224 Subs Hosp L3
--- NOTE | 2017-09-05 12:26 | PN_ITS ---
<Viktor Newsome - Last Filed: 09/05/17 12:19> Patient Problems: Active and Suspected Problems (Last Updated 04/14/17 @ 15:43 by IRINA Banegas) NSTEMI (non-ST elevated myocardial infarction) (Acute) COPD exacerbation (Acute) Lactate blood increase (Acute) S/P CABG x 3 (Acute) SHETH to LAD; SVG to OM; SVG to PDA Subjective: Pt resting comfortably in bed s/p cath. No intervention done. No CP/pressure/ tightness/SOB/LH/dizziness/palp/nausea/sweating. - Physical Exam General: Alert, Oriented x3, Cooperative HEENT: Atraumatic, PERRLA, EOMI, Normocephalic Neck: Supple, No JVD, Negative Carotid Bruits Lungs: Clear to auscultation, Normal air movement Cardiovascular: Regular rate, No murmurs Abdomen: Bowel Sounds Present, Soft, Non Tender Extremities: No edema, Capillary Refill Less than 3 Seconds Skin: No rashes, No breakdown Musculoskeletal: No Tenderness to Palpation of Joints or Extremities Neurological: Cranial nerves II-XII grossly intact Psych/Mental Status: Normal Affect, Appropriate, Alert and oriented to time, place, person, mood and affect Vital Signs Temp Pulse Resp BP Pulse Ox 97.4 F L 74 18 135/69 H 96 09/05/17 09:45 09/05/17 11:18 09/05/17 11:18 09/05/17 10:00 09/05/17 11:18 Oxygen Flow Rate (L/min) 3 Oxygen Delivery Method Nasal Cannula Weight: 72.7 kg Body Mass Index (BMI) 26.6 Intake and Output for Last 24 Hours 09/03/17 09/04/17 09/05/17 23:59 23:59 23:59 Intake Total 5517 / 5517 505 / 505 Balance 5517 / 5517 505 / 505 Microbiology Past 72 Hours 09/03/17 22:50 Influenza Types A,B Direct FA (JASKARAN) - Final Mucosa - Nose Laboratory Tests Past 24 Hrs 09/04/17 09/04/17 09/04/17 14:35 14:38 15:45 WBC RBC Hgb Hct MCV MCH MCHC RDW RDW Differential Plt Count MPV Immature Gran % (Auto) Neut % (Auto) Lymph % (Auto) [place] % (Auto) Eos % (Auto) Baso % (Auto) Absolute Neuts (auto) Absolute Lymphs (auto) Total Counted PT INR APTT 68.1 H Sodium Potassium Chloride Carbon Dioxide Anion Gap BUN Creatinine Estim Creat Clear Calc Est GFR (MDRD) Af Amer Est GFR (MDRD) Non-Af BUN/Creatinine Ratio Glucose Lactic Acid 3.7 H Calcium Urine Color Straw Urine Clarity Clear Urine pH 6.0 Ur Specific [place] 1.010 Urine Protein Negative Urine Glucose (UA) 1000 H Urine Ketones Negative Urine Occult Blood Negative Urine Nitrite Negative Urine Bilirubin Negative Urine Urobilinogen Normal Ur Leukocyte Esterase Negative Urine RBC 0 SEEN Urine WBC 0-5 SEEN Ur Squamous Epith Cells 0-5 SEEN Urine Bacteria 0 SEEN Urine Mucus 0 SEEN MRSA (PCR) 09/04/17 09/05/17 09/05/17 20:30 05:00 05:00 WBC 15.5 H RBC 3.70 L Hgb 10.8 L Hct 32.9 L MCV 88.9 MCH 29.2 MCHC 32.8 RDW 13.9 RDW Differential 45.2 H Plt Count 309 MPV 8.8 Immature Gran % (Auto) 0.300 Neut % (Auto) 86.4 H Lymph % (Auto) 8.7 L [place] % (Auto) 4.6 Eos % (Auto) 0.0 Baso % (Auto) 0.0 Absolute Neuts (auto) 13.4 H Absolute Lymphs (auto) 1.34 Total Counted Not Reportable PT INR APTT 66.9 H Sodium 144 Potassium 4.0 Chloride 110 H Carbon Dioxide 23.0 Anion Gap 11 BUN 19 H Creatinine 0.77 Estim Creat Clear Calc 46.43 Est GFR (MDRD) Af Amer 95 Est GFR (MDRD) Non-Af 79 BUN/Creatinine Ratio 24.8 H Glucose 192 H Lactic Acid Calcium 8.4 L Urine Color Urine Clarity Urine pH Ur Specific [place] Urine Protein Urine Glucose (UA) Urine Ketones Urine Occult Blood Urine Nitrite Urine Bilirubin Urine Urobilinogen Ur Leukocyte Esterase Urine RBC Urine WBC Ur Squamous Epith Cells Urine Bacteria Urine Mucus MRSA (PCR) 09/05/17 09/05/17 09/05/17 05:00 05:00 10:00 WBC RBC Hgb Hct MCV MCH MCHC RDW RDW Differential Plt Count MPV Immature Gran % (Auto) Neut % (Auto) Lymph % (Auto) [place] % (Auto) Eos % (Auto) Baso % (Auto) Absolute Neuts (auto) Absolute Lymphs (auto) Total Counted PT 13.9 INR 1.1 APTT 45.6 H Sodium Potassium Chloride Carbon Dioxide Anion Gap BUN Creatinine Estim Creat Clear Calc Est GFR (MDRD) Af Amer Est GFR (MDRD) Non-Af BUN/Creatinine Ratio Glucose Lactic Acid 3.0 H Calcium Urine Color Urine Clarity Urine pH Ur Specific [place] Urine Protein Urine Glucose (UA) Urine Ketones Urine Occult Blood Urine Nitrite Urine Bilirubin Urine Urobilinogen Ur Leukocyte Esterase Urine RBC Urine WBC Ur Squamous Epith Cells Urine Bacteria Urine Mucus MRSA (PCR) Pending 09/05/17 10:20 WBC RBC Hgb Hct MCV MCH MCHC RDW RDW Differential Plt Count MPV Immature Gran % (Auto) Neut % (Auto) Lymph % (Auto) [place] % (Auto) Eos % (Auto) Baso % (Auto) Absolute Neuts (auto) Absolute Lymphs (auto) Total Counted PT INR APTT Sodium Potassium Chloride Carbon Dioxide Anion Gap BUN Creatinine Estim Creat Clear Calc Est GFR (MDRD) Af Amer Est GFR (MDRD) Non-Af BUN/Creatinine Ratio Glucose Lactic Acid 2.9 H Calcium Urine Color Urine Clarity Urine pH Ur Specific [place] Urine Protein Urine Glucose (UA) Urine Ketones Urine Occult Blood Urine Nitrite Urine Bilirubin Urine Urobilinogen Ur Leukocyte Esterase Urine RBC Urine WBC Ur Squamous Epith Cells Urine Bacteria Urine Mucus MRSA (PCR) POC Glucose 09/05/17 09/04/17 09/04/17 06:58 21:54 16:20 POC Glucose 170 H 311 H 211 H Medical Necessity - Tobacco Use Smoking Status: Former smoker Assessment/Plan Active and Suspected Problems (Last Updated 04/14/17 @ 15:43 by IRINA Banegas) NSTEMI (non-ST elevated myocardial infarction) (Acute) COPD exacerbation (Acute) Lactate blood increase (Acute) S/P CABG x 3 (Acute) SHETH to LAD; SVG to OM; SVG to PDA 1. NSTEMI - s/p cath no intervention. Currently no CP. Findings as per cardiology note. Some staining of aorta during cath, CTA negative for dissection. Pt will have echocardiogram. Continue Asa/plavix/statin/BB/ACEI/ Nitro. [place] trending down. 2. Hx CAD with prior CABG x 3 2015 3. HLD - statin and zetia 4. COPD exacerbation - prednisone, aerosols. No SOB. CTA neg. 5. DMt2 - Hold metformin x 3 days. A1C 6.5. Consider additional agent at DC. DVT ppx: Heparin DC planning: monitor overnight. This patient was seen by Viktor Newsome PA-C under the supervision of Doctor Monica. <Alvaro Anderson - Last Filed: 09/05/17 16:27> - Physical Exam Vital Signs Temp Pulse Resp BP Pulse Ox 97.4 F L 96 23 H 146/68 H 97 09/05/17 12:00 09/05/17 15:00 09/05/17 15:00 09/05/17 15:00 09/05/17 15:00 Oxygen Flow Rate (L/min) 2 Oxygen Delivery Method Nasal Cannula Weight: 72.7 kg Body Mass Index (BMI) 26.6 Intake and Output for Last 24 Hours 09/03/17 09/04/17 09/05/17 23:59 23:59 23:59 Intake Total 5517 / 5517 1026 / 1026 Balance 5517 / 5517 1026 / 1026 Microbiology Past 72 Hours 09/03/17 22:50 Influenza Types A,B Direct FA (JASKARAN) - Final Mucosa - Nose Laboratory Tests Past 24 Hrs 09/04/17 09/05/17 09/05/17 20:30 05:00 05:00 WBC 15.5 H RBC 3.70 L Hgb 10.8 L Hct 32.9 L MCV 88.9 MCH 29.2 MCHC 32.8 RDW 13.9 RDW Differential 45.2 H Plt Count 309 MPV 8.8 Immature Gran % (Auto) 0.300 Neut % (Auto) 86.4 H Lymph % (Auto) 8.7 L [place] % (Auto) 4.6 Eos % (Auto) 0.0 Baso % (Auto) 0.0 Absolute Neuts (auto) 13.4 H Absolute Lymphs (auto) 1.34 Total Counted Not Reportable PT INR APTT 66.9 H Sodium 144 Potassium 4.0 Chloride 110 H Carbon Dioxide 23.0 Anion Gap 11 BUN 19 H Creatinine 0.77 Estim Creat Clear Calc 46.43 Est GFR (MDRD) Af Amer 95 Est GFR (MDRD) Non-Af 79 BUN/Creatinine Ratio 24.8 H Glucose 192 H Lactic Acid Calcium 8.4 L MRSA (PCR) 09/05/17 09/05/17 09/05/17 05:00 05:00 10:00 WBC RBC Hgb Hct MCV MCH MCHC RDW RDW Differential Plt Count MPV Immature Gran % (Auto) Neut % (Auto) Lymph % (Auto) [place] % (Auto) Eos % (Auto) Baso % (Auto) Absolute Neuts (auto) Absolute Lymphs (auto) Total Counted PT 13.9 INR 1.1 APTT 45.6 H Sodium Potassium Chloride Carbon Dioxide Anion Gap BUN Creatinine Estim Creat Clear Calc Est GFR (MDRD) Af Amer Est GFR (MDRD) Non-Af BUN/Creatinine Ratio Glucose Lactic Acid 3.0 H Calcium MRSA (PCR) Negative 09/05/17 10:20 WBC RBC Hgb Hct MCV MCH MCHC RDW RDW Differential Plt Count MPV Immature Gran % (Auto) Neut % (Auto) Lymph % (Auto) [place] % (Auto) Eos % (Auto) Baso % (Auto) Absolute Neuts (auto) Absolute Lymphs (auto) Total Counted PT INR APTT Sodium Potassium Chloride Carbon Dioxide Anion Gap BUN Creatinine Estim Creat Clear Calc Est GFR (MDRD) Af Amer Est GFR (MDRD) Non-Af BUN/Creatinine Ratio Glucose Lactic Acid 2.9 H Calcium MRSA (PCR) POC Glucose 09/05/17 09/05/17 09/04/17 13:16 06:58 21:54 POC Glucose 147 H 170 H 311 H 09/04/17 16:20 POC Glucose 211 H Assessment/Plan This patient was seen in conjunction withViktor Newsome PA-C. I have independently interviewed and examined the patient and reviewed pertinent historical, laboratory, and other data. Please refer to Viktor Newsome PA-C note for details of this patient's presentation, findings, and recommendations. I have reviewed Viktor Newsome PA-C note and concur with documented findings. In brief, patient is a 71-year-old lady admitted with pain found to have acute non-ST PA underwent left heart catheterization on 09/05/2017 which demonstrated; Distal left main coronary artery with 50% stenosis; Left anterior descending artery with proximal 99% stenosis; First diagonal vessel with 70% ostial stenosis; Proximal left circumflex artery calcified with 99% stenosis. Physical Examination: GENERAL: cooperative HEENT: Clear conjunctiva, NECK; supple, normal thyroid, CHEST: Diminished to auscultation bilaterally, HEART: Regular S1 S2, no audible murmurs ABDOMEN: soft, non-tender, normoactive bowel sounds, RECTAL: deferred EXTREMITIES: No edema, no clubbing, no cyanosis. INSURANCE SPECIALIST: Awake; no lateralizing signs. SKIN: No Rash Assessment: 1. Unstable angina underwent left heart catheterization with results as above 2. CAD with previous CABG 3. COPD with mild exacerbation 4. Diabetes mellitus type 2 5. Dyslipidemia Recommendations: 1. I have discussed the results of my overview and impressions with the patient 2. Options for management were reviewed Code Visit Inpatient E&M: 73145 Subs Hosp L3
[2017-09-05 13:26] LABS: Bedside Glucose 147 mg/dL (70-110)
[2017-09-05 13:33] LABS: M R Staph aureus DNA By PCR Negative (Negative); Probe Check PASS; Specimen Processing Control PASS
[2017-09-05] MEDS: Ezetimibe 10 MG Tablet PO (13:40)
--- NOTE | 2017-09-05 15:15 | CASEMGMT ---
DC PLAN: home on dc. No needs identified @ this time. Gus BSN RN ACM
[2017-09-05 17:01] LABS: Bedside Glucose 211 mg/dL (70-110)
[2017-09-05] MEDS: Isosorbide Mononitrate 30 MG Tablet PO (18:50)
[2017-09-05] MEDS: Famotidine 20 MG Tablet 40 MG PO (21:06)
[2017-09-05] MEDS: amLODIPine 5 MG Tablet PO (21:06)
[2017-09-05 21:15] LABS: Bedside Glucose 183 mg/dL (70-110)
[2017-09-06] VITALS (16 sets, daily range): BP systolic 135–162; BP diastolic 64–84; PULSE 67–86; RESP 12–21; TEMP 36.2–36.8; O2SAT 91–98
[2017-09-06] MEDS: 0.9% Normal Saline 1,000 ML 100 ML IV (02:41)
[2017-09-06] MEDS: Ipratropium/Albuterol Sulfate 3 ML AMPUL.NEB INHALATION ×2 (03:04→06:43)
[2017-09-06 03:44] LABS: Absolute Lymphocyte Count 3.63 X10^3/ul (0.83-4.51); Absolute Neutrophil Count 9.6 X10^3/uL (2.0-7.7); Basophil# 0.02 X10^3/uL; Basophil% 0.1 % (0-1); Hematocrit 36.2 % (37-47); Hemoglobin 11.8 g/dl (12.0-15.0); Lymphocyte # 3.63 X10^3/ul (4.0); Lymphocyte % 24.3 % (19-41); Mean Corp Hgb Conc 32.6 g/gl (32-36); Mean Corpuscular Hgb 29.6 pg (27.0-32.0); Mean Corpuscular Volume 90.7 fL (81-99); Mean Platelet Vol. 9.1 fl (6.2-12.0); Monocyte# 1.58 X10^3/uL; Monocyte% 10.6 % (0-10); Neutrophil % 64.2 % (47-70); Platelet Count 327 K/mm3 (150-450); RBC Distribution Width CV 13.8 % (11.6-14.6); RBC Distribution Width SD 45.3 fl (35.1-43.9); Red Blood Count 3.99 M/mm3 (4.2-5.4)
[2017-09-06 03:45] LABS: Differential Indicated SCAN CRITERIA MET; POSITIVE COUNT NO; POSITIVE DIFFERENTIAL YES; POSITIVE MORPHOLOGY NO
[2017-09-06 04:03] LABS: Anisocytosis RARE; Platelet Estimate ADEQUATE (ADEQ)
[2017-09-06 04:04] LABS: Macrocytosis RARE
[2017-09-06 05:15] LABS: Anion Gap 11 (5-15); BUN 19 mg/dL (7-18); BUN/Creat Ratio 24.3 RATIO (10-20); Calcium,Total 8.2 mg/dL (8.5-10.1); Chloride 112 mmol/L (98-107); Creatinine, Serum 0.78 mg/dL (0.55-1.02); EST Glomerular Filtration Rate 77 mL/min (>60); Est Glom Filt Rate - Afr Amer 93 mL/min (>60); Estimated Creatinine Clearance 46.43 ml/min; Glucose 122 mg/dL (74-106); Potassium 3.6 mmol/L (3.5-5.1); Sodium Level 146 mmol/L (136-145)
[2017-09-06] MEDS: Levothyroxine 88 MCG Tablet PO (06:41)
[2017-09-06] MEDS: 0.9% NaCl Peripheral Flush Adult/Peds IV (06:41)
[2017-09-06 06:45] LABS: Bedside Glucose 94 mg/dL (70-110)
--- NOTE | 2017-09-06 07:11 | PCM.PN.CARD ---
Subjectve: Patient seen and evaluated. Appears to be doing well this morning no chest pain no shortness of breath and no groin problems Objective: Vital Signs Temp Pulse Resp BP Pulse Ox 97.6 F L 71 18 155/64 H 91 09/06/17 06:00 09/06/17 06:00 09/06/17 06:00 09/06/17 06:00 09/06/17 06:00 Oxygen Flow Rate (L/min) 1 Oxygen Delivery Method Nasal Cannula Weight: 155 lb 10.342 oz Body Mass Index (BMI) 26.6 Intake and Output for Last 24 Hours 09/04/17 09/05/17 09/06/17 23:59 23:59 23:59 Intake Total 5517 / 5517 2744 / 2744 562 / 562 Output Total 400 / 400 Balance 5517 / 5517 2344 / 2344 562 / 562 General: Awake, Alert, Oriented x 3 HEENT: PERRL, EOMI, Sclera Non Icteric Neck: Supple, Good ROM, No Lymph Node Enlargement Lungs: Clear to auscultation Cardiovascular: Regular Rhythm, Normal S1, Normal S2, No Murmurs, No Rubs, No Gallops Vascular: No Carotid Bruits, Normal Femoral Pulses, Normal Radial Pulses, Normal Dorsalis Pedal Pulse, Normal Posterior Tibial Pulses Abdomen: Bowel Sounds Present, Soft, Non Tender, No HSM, No Organomegaly Extremities: No Cyanosis, No Clubbing, No edema Neurological: No Focal Motor or Sensory Deficit 09/05/17 10:20: Lactic Acid 2.9 H 09/06/17 03:35: WBC 15.0 H, RBC 3.99 L, Hgb 11.8 L, Hct 36.2 L, MCV 90.7, MCH 29.6, MCHC 32.6, RDW 13.8, RDW Differential 45.3 H, Plt Count 327, MPV 9.1, Immature Gran % (Auto) 0.800, Neut % (Auto) 64.2, Lymph % (Auto) 24.3, [place] % (Auto) 10.6 H, Eos % (Auto) 0.0, Baso % (Auto) 0.1, Absolute Neuts (auto) 9.6 H, Total Counted Not Reportable 09/06/17 03:35: Sodium 146 H, Potassium 3.6, Chloride 112 H, Carbon Dioxide 23.0, Anion Gap 11, BUN 19 H, Creatinine 0.78, Est GFR (MDRD) Af Amer 93, Est GFR (MDRD) Non-Af 77, BUN/Creatinine Ratio 24.3 H, Glucose 122 H, Calcium 8.2 L Rhythm: EKG: ECHO: Stress Test: Cardiac Cath: PCI: CT Surgery: Holter monitor: EPS: PPM: CXR: Chest CT Scan: Medical Necessity - Tobacco Use Smoking Status: Former smoker Assessment/Plan 1. Non-ST elevation myocardial infarction. The patient underwent a cardiac catheterization yesterday which demonstrated the following: Distal left main coronary artery with 50% stenosis. Left anterior descending artery with proximal 99% stenosis. First diagonal vessel with 70% ostial stenosis. Proximal left circumflex artery calcified with 99% stenosis. Left to right collaterals filling distal right coronary artery. Dominant right coronary artery totally occluded proximally. Saphenous vein graft to right coronary artery which is totally occluded. Saphenous vein graft to the obtuse marginal branch which is patent. Left internal mammary artery was not engaged but presumably patent. Due to competitive flow. In attempting to engage or advance into the left internal mammary artery through the subclavian vein appeared to be localized staining of the aorta. CAT scan yesterday did not demonstrate any compromise to the origin of the left subclavian and there was no evidence of dissection. Patient is currently pain-free. Would recommend aggressive blood pressure management with oral nitrates , beta-toña and STELLA inhibitor and calcium channel toña. Would discontinue Plavix for now and treat medically. Would recommend discharge and recheck CAT scan in a week and will see in my office in 10 days. 2. Hypertension Managed blood pressure aggressively with oral calcium channel toña as well as oral beta-toña and STELLA inhibitor. Thank you for allowing me to participate in the care of your patient. Please don't hesitate to call if any issues arise
--- NOTE | 2017-09-06 07:14 | PN.CARD_ITS ---
Subjectve: Patient seen and evaluated. Appears to be doing well this morning no chest pain no shortness of breath and no groin problems Objective: Vital Signs Temp Pulse Resp BP Pulse Ox 97.6 F L 71 18 155/64 H 91 09/06/17 06:00 09/06/17 06:00 09/06/17 06:00 09/06/17 06:00 09/06/17 06:00 Oxygen Flow Rate (L/min) 1 Oxygen Delivery Method Nasal Cannula Weight: 155 lb 10.342 oz Body Mass Index (BMI) 26.6 Intake and Output for Last 24 Hours 09/04/17 09/05/17 09/06/17 23:59 23:59 23:59 Intake Total 5517 / 5517 2744 / 2744 562 / 562 Output Total 400 / 400 Balance 5517 / 5517 2344 / 2344 562 / 562 General: Awake, Alert, Oriented x 3 HEENT: PERRL, EOMI, Sclera Non Icteric Neck: Supple, Good ROM, No Lymph Node Enlargement Lungs: Clear to auscultation Cardiovascular: Regular Rhythm, Normal S1, Normal S2, No Murmurs, No Rubs, No Gallops Vascular: No Carotid Bruits, Normal Femoral Pulses, Normal Radial Pulses, Normal Dorsalis Pedal Pulse, Normal Posterior Tibial Pulses Abdomen: Bowel Sounds Present, Soft, Non Tender, No HSM, No Organomegaly Extremities: No Cyanosis, No Clubbing, No edema Neurological: No Focal Motor or Sensory Deficit 09/05/17 10:20: Lactic Acid 2.9 H 09/06/17 03:35: WBC 15.0 H, RBC 3.99 L, Hgb 11.8 L, Hct 36.2 L, MCV 90.7, MCH 29.6, MCHC 32.6, RDW 13.8, RDW Differential 45.3 H, Plt Count 327, MPV 9.1, Immature Gran % (Auto) 0.800, Neut % (Auto) 64.2, Lymph % (Auto) 24.3, Hamlin % ( Auto) 10.6 H, Eos % (Auto) 0.0, Baso % (Auto) 0.1, Absolute Neuts (auto) 9.6 H, Total Counted Not Reportable 09/06/17 03:35: Sodium 146 H, Potassium 3.6, Chloride 112 H, Carbon Dioxide 23.0 , Anion Gap 11, BUN 19 H, Creatinine 0.78, Est GFR (MDRD) Af Amer 93, Est GFR ( MDRD) Non-Af 77, BUN/Creatinine Ratio 24.3 H, Glucose 122 H, Calcium 8.2 L Rhythm: EKG: ECHO: Stress Test: Cardiac Cath: PCI: CT Surgery: Holter monitor: EPS: PPM: CXR: Chest CT Scan: Medical Necessity - Tobacco Use Smoking Status: Former smoker Assessment/Plan 1. Non-ST elevation myocardial infarction. The patient underwent a cardiac catheterization yesterday which demonstrated the following: Distal left main coronary artery with 50% stenosis. Left anterior descending artery with proximal 99% stenosis. First diagonal vessel with 70% ostial stenosis. Proximal left circumflex artery calcified with 99% stenosis. Left to right collaterals filling distal right coronary artery. Dominant right coronary artery totally occluded proximally. Saphenous vein graft to right coronary artery which is totally occluded. Saphenous vein graft to the obtuse marginal branch which is patent. Left internal mammary artery was not engaged but presumably patent. Due to competitive flow. In attempting to engage or advance into the left internal mammary artery through the subclavian vein appeared to be localized staining of the aorta. CAT scan yesterday did not demonstrate any compromise to the origin of the left subclavian and there was no evidence of dissection. Patient is currently pain-free. Would recommend aggressive blood pressure management with oral nitrates , beta- toña and STELLA inhibitor and calcium channel toña. Would discontinue Plavix for now and treat medically. * Would recommend discharge and recheck CAT scan in a week and will see in my office in 10 days. * 2. Hypertension Managed blood pressure aggressively with oral calcium channel toña as well as oral beta-toña and STELLA inhibitor. Thank you for allowing me to participate in the care of your patient. Please don't hesitate to call if any issues arise
--- NOTE | 2017-09-06 07:27 | PCM.DC ---
- Discharge Diagnoses Current Active Problems: Current Active and Chronic Problems (Last Updated 04/14/17 @ 15:43 by IRINA Banegas) NSTEMI (non-ST elevated myocardial infarction) (Acute) COPD exacerbation (Acute) Lactate blood increase (Acute) S/P CABG x 3 (Acute) SHETH to LAD; SVG to OM; SVG to PDA HTN (hypertension) (Chronic) You will use the following diet at home:: Calorie/Carbohydrate Controlled (specify 1200, 1400, etc) - 1800, Cardiac Your food should be the consistency of: Regular Discharge Activity: Return to Normal Activity Allergies/Adverse Reactions: Allergies bacitracin [From Neosporin ([id number])] Allergy (Severe, Verified 04/14/17 15:47) rash neomycin [From Neosporin ([id number])] Allergy (Severe, Verified 04/14/17 15:47) rash Penicillins Allergy (Severe, Verified 04/14/17 15:47) rash polymyxin B [From Neosporin ([id number])] Allergy (Severe, Verified 04/14/17 15:47) rash Medications to take at Discharge aspirin 81 mg tablet,delayed release 81 mg PO QDAY 04/14/17 atorvastatin 80 mg tablet 80 mg PO QODAY 04/14/17 clopidogrel 75 mg tablet 75 mg PO ONCE 04/14/17 ezetimibe 10 mg tablet 10 mg PO QDAY 04/14/17 lisinopril 20 mg tablet 20 mg PO QDAY 04/14/17 metformin 1,000 mg tablet 1,000 mg PO BID 04/14/17 metoprolol succinate ER 100 mg tablet,extended release 24 hr 100 mg PO QDAY 04/14/17 nitroglycerin 0.4 mg sublingual tablet 0.4 mg SUBLINGUAL Q5-15M PRN 04/14/17 ranitidine 300 mg capsule 300 mg PO QHS 04/14/17 Levothyroxine Sodium 88 mcg PO DAILY 09/03/17 Amlodipine [Norvasc] 5 mg PO DAILY #60 tab 09/06/17 Isosorbide Mononitrate [Imdur] 30 mg PO BID #120 tab 09/06/17 The following prescriptions were given: Amlodipine [Norvasc] 5 mg PO DAILY #60 tab Isosorbide Mononitrate [Imdur] 30 mg PO BID #120 tab Primary Care Physician: Chetan Mclain MD [Primary Care Provider] - Please follow up with your Primary Care Physician in: in 1-2 weeks Please Follow Up With: Richard Roger MD When: in [address] CHEST Proposed Discharge Date: 09/06/17
--- NOTE | 2017-09-06 07:29 | PCM.DC.SUM ---
Discharge Date and Diagnosis - Problem List Patient Problems: Active and Suspected Problems (Last Updated 04/14/17 @ 15:43 by IRINA Banegas) NSTEMI (non-ST elevated myocardial infarction) (Acute) COPD exacerbation (Acute) Lactate blood increase (Acute) S/P CABG x 3 (Acute) SHETH to LAD; SVG to OM; SVG to PDA Date of Admission: 09/03/17 Date of Discharge: 09/06/17 - Primary Discharge Diagnosis Active and Suspected Problems (Last Updated 04/14/17 @ 15:43 by IRINA Banegas) NSTEMI (non-ST elevated myocardial infarction) (Acute) COPD exacerbation (Acute) Lactate blood increase (Acute) S/P CABG x 3 (Acute) SHETH to LAD; SVG to OM; SVG to PDA - Secondary Discharge Diagnosis Chronic Problems (Last Updated 04/14/17 @ 15:43 by IRINA Banegas) HTN (hypertension) (Chronic) COPD (chronic obstructive pulmonary disease) (Chronic) Hyperlipidemia (Chronic) Essential hypertension (Chronic) CAD (coronary artery disease) (Chronic) Hospital Course and Treatment Imaging Results: Clinical Impression(s) from Imaging Studies Chest CTA 09/05/17 08:58 IMPRESSION: Findings suggestive of focal contrast collection along the posterior aspect of the aortic arch suggestive of a possible focal subintimal contrast injection. There is no evidence of dissection. Emphysematous changes and scarring. Electronically Signed: Dima Sanches MD at 10:17 EDT Tel [phone], Service support , Summary of Care Provided: In brief, patient is a 71-year-old lady admitted with pain found to have acute non-ST NH underwent left heart catheterization on 09/05/2017 which demonstrated; Distal left main coronary artery with 50% stenosis; Left anterior descending artery with proximal 99% stenosis; First diagonal vessel with 70% ostial stenosis; Proximal left circumflex artery calcified with 99% stenosis. Assessment: 1. Unstable angina underwent left heart catheterization with results as above cardiology recommended optimization of medical therapy 2. CAD with previous CABG 3. COPD with mild exacerbation 4. Diabetes mellitus type 2 5. Dyslipidemia 6. Hypertension blood pressure uncontrolled added amlodipine to her home regimen Physical Examination on discharge : GENERAL: cooperative HEENT: Clear conjunctiva, NECK; supple, normal thyroid, CHEST: Diminished to auscultation bilaterally, HEART: Regular S1 S2, no audible murmurs ABDOMEN: soft, non-tender, normoactive bowel sounds, RECTAL: deferred EXTREMITIES: No edema, no clubbing, no cyanosis. EXPERIMENTAL PHYSICIST: Awake; no lateralizing signs. SKIN: No Rash Discharge Diet: Low fat/ Low Cholesterol, 1800 Calorie Control Diet Discharge Activity: Return to Normal Activity Home Medications: Medications to take at Discharge aspirin 81 mg tablet,delayed release 81 mg PO QDAY 04/14/17 atorvastatin 80 mg tablet 80 mg PO QODAY 04/14/17 clopidogrel 75 mg tablet 75 mg PO ONCE 04/14/17 ezetimibe 10 mg tablet 10 mg PO QDAY 04/14/17 lisinopril 20 mg tablet 20 mg PO QDAY 04/14/17 metformin 1,000 mg tablet 1,000 mg PO BID 04/14/17 metoprolol succinate ER 100 mg tablet,extended release 24 hr 100 mg PO QDAY 04/14/17 nitroglycerin 0.4 mg sublingual tablet 0.4 mg SUBLINGUAL Q5-15M PRN 04/14/17 ranitidine 300 mg capsule 300 mg PO QHS 04/14/17 Levothyroxine Sodium 88 mcg PO DAILY 09/03/17 Amlodipine [Norvasc] 5 mg PO DAILY #60 tab 09/06/17 Isosorbide Mononitrate [Imdur] 30 mg PO BID #120 tab 09/06/17 Following Prescrptions Were Given to Patient: Amlodipine [Norvasc] 5 mg PO DAILY #60 tab Isosorbide Mononitrate [Imdur] 30 mg PO BID #120 tab Primary Care Physician: Chetan Mclain MD [Primary Care Provider] - Please follow up with your Primary Care Physician in: in 1-2 weeks Please Follow Up With: Richard Roger MD When: in [address] CHEST Disposition: Home Minutes spent on discharge:: 35 Patient Condition:: Stable Medical Necessity - Tobacco Use Smoking Status: Former smoker Meaningful Use Info Meaningful Use Diagnoses (Choose all that apply): AMI - AMI Aspirin given w/in 24hrs of arrival?: Yes ASA at discharge?: Yes Statins at discharge?: Yes Alvino/ARB at discharge?: No Reason Alvino/ARB not ordered:: Not indicated Beta Reina at discharge?: Yes Done w/ Acute NH measure.: Yes Code Visit Inpatient E&M: 77153 Disch Hosp
[2017-09-06] MEDS: Aspirin E.C. 81 MG Tablet PO (09:47)
[2017-09-06] MEDS: amLODIPine 5 MG Tablet PO (09:48)
[2017-09-06] MEDS: Isosorbide Mononitrate 30 MG Tablet PO (09:48)
[2017-09-06] MEDS: Ezetimibe 10 MG Tablet PO (09:48)
[2017-09-06] MEDS: Metoprolol Tartrate 50 MG Tablet PO (09:48)
[2017-09-06] MEDS: Lisinopril 20 MG Tablet PO (09:50)
[2017-09-06] MEDS: predniSONE 20 MG Tablet 40 MG PO (09:50)
[2017-09-06 12:59] LABS: Pathologist Review Reviewed
== END 2017-09-06 10:51 | disposition home or self-care (01) | DRG 281 ==
LOC: PCU 09-05 07:14 → ICU 09-05 11:14
PROVIDERS: Family Medicine; Internal Medicine; Internal Medicine Cardiovascular Disease; Admitting Provider Internal Medicine; Family Provider Family Medicine; PCP Family Medicine; Visit Provider Internal Medicine
DX: I21.4 Non-ST elevation (NSTEMI) myocardial infarction (principal); I50.32 Chronic diastolic (congestive) heart failure; J44.1 Chronic obstructive pulmonary disease with (acute) exacerbation; I25.110 Atherosclerotic heart disease of native coronary artery with unstable angina pectoris; I11.0 Hypertensive heart disease with heart failure; J20.8 Acute bronchitis due to other specified organisms; E11.9 Type 2 diabetes mellitus without complications; M19.90 Unspecified osteoarthritis, unspecified site; R74.0 Nonspecific elevation of levels of transaminase and lactic acid dehydrogenase [LDH]; Z87.891 Personal history of nicotine dependence; Z95.1 Presence of aortocoronary bypass graft; Z79.84 Long term (current) use of oral hypoglycemic drugs; Z79.01 Long term (current) use of anticoagulants; Z79.82 Long term (current) use of aspirin; Z79.899 Other long term (current) drug therapy
CPT/HCPCS: 36415; 71275; 80048; 80053; 80061; 81001; 82962; 83036; 83605; 84439; 84443; 84484; 85025; 85027; 85610; 85730; 87040; 87641; 87804; 93005; 93306; 93455; 94640; 97802; 99152; 99153; J7030; Q9967; A4216; C1769

== ENCOUNTER → 2017-09-16 14:30 | Outpatient (CLI) | payer MEDICARE, SELFPAY ==
--- NOTE | 2017-09-16 14:33 | CT_ITS ---
STUDY: CT CHEST WITHOUT CONTRAST REASON FOR EXAM: Female, 71 years old. Hemoptysis, chronic dyspnea, history of CABG x3, CAD, COPD TECHNIQUE: Transaxial 2.5 mm imaging was performed without the administration of intravenous contrast material. Multiplanar coronal and sagittal images were reformatted. This examination is limited for the evaluation of gastrointestinal, solid organs and vascular structures due to the lack of intravenous contrast. Individualized dose optimization techniques were used for this CT. COMPARISON: CTA chest 09/05/2017 FINDINGS: Moderate diffuse symmetric emphysema without dominant bulla formation. Distortion of anterior medial lung parenchyma felt to be due to scarring and postsurgical changes. Stable scarring in the lingula. There are no pulmonary masses are nodules. There is no demonstrated pleural abnormality. Sternal cerclage wires and vascular clips are present from a prior sternotomy and coronary artery bypass graft procedure (CABG). There is coronary artery calcification. There is no pericardial fluid. There are nonenlarged mediastinal lymph nodes. Normal hilar regions. There is prominence of the pulmonary hilar arteries without peripheral pulmonary vascular congestion, suggesting pulmonary hypertension. There is atherosclerotic calcification of the aortic arch, its branches and descending thoracic aorta with tortuosity. There are multi-level degenerative changes of the thoracic spine. There is demineralization of osseous structures. Stable nodular low-attenuation of the right adrenal gland, incompletely imaged. CT/Chest without Contrast IMPRESSION: Extensive arteriosclerosis of the aorta, greater branches and coronary arteries with post surgical changes. Stable diffuse moderate symmetric emphysema without dominant bulla formation. No pulmonary nodule or mass is detected. No pulmonary edema, congestive heart failure or confluent pneumonia. Other nonacute findings as outlined above. Electronically Signed: Mahnaz Scott MD at 6:25 EDT , Service support ,
== END ==
PROVIDERS: Family Provider Family Medicine; PCP Family Medicine; Visit Provider Family Medicine
DX: R04.2 Hemoptysis (principal); J43.9 Emphysema, unspecified
CPT/HCPCS: 71250

== ENCOUNTER → 2020-02-19 10:32 | Outpatient (CLI) | payer MEDICARE, SELFPAY ==
[2020-01-25 13:20] VITALS: BMI 28.9
--- NOTE | 2020-02-19 10:32 | ECHOCS_ITS ---
Reason For Study: DYSPNEA/SOB Procedure This was a 2D Doppler, Color Flow transthoracic echocardiogram. The study was technically difficult. Due to body habitus. Contrast injection was performed. Exam performed in department. Left Ventricle Normal LV size. The estimated ejection fraction is 35 %. Stage 1 diastolic dysfunction. There is moderate to severe global hypokinesis of the left ventricle. Right Ventricle Mildly dilated right ventricle. Normal systolic function. Atria Normal left atrium. Normal right atrium. Mitral Valve Normal mitral valve. Mild (1+) eccentric mitral valve insufficiency. Tricuspid Valve Normal tricuspid valve. Mild (1+) tricuspid valve insufficiency. Pulmonary artery systolic pressure is 44 mmHg. Aortic Valve Trisinus/trileaflet aortic valve. Mild focal aortic valve calcification. Pulmonic Valve Normal pulmonic valve. Great Vessels Normal aortic root. The pulmonary artery is normal size. Normal inferior vena cava. Pericardium/Pleural No pericardial effusion. Medication 22 gauge I.V. with prn adaptor inserted into right arm. Diluted definity 2.0ml given slow IV push to enhance endocardial definition. MMode/2D Measurements & Calculations LVIDd: 5.0 cm IVSd: 1.1 cm Ao root diam: 2.5 cm LVIDs: 4.5 cm LVPWd: 0.94 cm RVDd: 3.5 cm FS: 10.2 % LAV(MOD-bp): 58.0 ml LVAd ap4: 37.2 cm2 SV(MOD-sp4): 55.8 ml LAV(MOD-bp) Indexed: 31.8 ml/m2 EDV(MOD-sp4): 137.7 ml LAV(MOD-sp2): 53.5 ml EDV(sp4-el): 140.2 ml LAV(MOD-sp4): 61.9 ml LVAs ap4: 27.1 cm2 ESV(MOD-sp4): 81.9 ml ESV(sp4-el): 85.6 ml EF(MOD-sp4): 40.5 % EF(sp4-el): 38.9 % SV(sp4-el): 54.6 ml LA A4 area: 20.4 cm2 LA dimension(2D): 4.6 cm RA A4 area: 18.7 cm2 Time Measurements MV dec time: 0.18 sec Doppler Measurements & Calculations MV E max chintan: 81.4 cm/sec Lat Peak E' Chintan: 5.4 cm/sec Med Peak E' Chintan: 4.8 cm/sec MV A max chintan: 117.5 cm/sec E/E' lat: 15.2 E/E' med: 16.8 MV E/A: 0.69 Ao V2 max: 165.3 cm/sec LV V1 max: 79.9 cm/sec MR max chintan: 515.3 cm/sec Ao max P.9 mmHg LV V1 max P.6 mmHg MR max P.2 mmHg PA V2 max: 119.2 cm/sec TR max chintan: 285.8 cm/sec TR max P.2 mmHg Interpretation Summary Normal LV size. The estimated ejection fraction is 35 %. There is moderate to severe global hypokinesis of the left ventricle. Stage 1 diastolic dysfunction. Mild focal aortic valve calcification. Compared to previous study, the left ventricular systolic function has worsened.. Ordering Physician: Hussain Parsons Referring Physician: Chetan Mclain Performed By: Gloria Valera, TARIQ, RVT
[2020-02-19 14:18] LABS: Anion Gap 9 (5-15); BUN 21 mg/dL (7-18); Calcium,Total 8.8 mg/dL (8.5-10.1); Chloride 104 mmol/L (98-107); Creatinine, Serum 0.78 mg/dL (0.55-1.02); EST Glomerular Filtration Rate 77 mL/min (>60); Est Glom Filt Rate - Afr Amer 93 mL/min (>60); Glucose 121 mg/dL (74-106); Potassium 2.9 mmol/L (3.5-5.1); Sodium Level 140 mmol/L (136-145)
== END ==
PROVIDERS: PCP Family Medicine; Referring Provider Nurse Practitioner Family; Visit Provider Nurse Practitioner Family
DX: I25.10 Atherosclerotic heart disease of native coronary artery without angina pectoris (principal); I10 Essential (primary) hypertension; E78.5 Hyperlipidemia, unspecified; R06.02 Shortness of breath; R60.9 Edema, unspecified; Z95.1 Presence of aortocoronary bypass graft; Z79.899 Other long term (current) drug therapy
CPT/HCPCS: 36415; 80048; 93306; Q9957; A4216; C8929

== ENCOUNTER → 2020-03-17 10:40 | Outpatient (CLI) | payer MEDICARE, SELFPAY ==
[2020-03-05 09:56] VITALS: BMI 27.6
--- NOTE | 2020-03-17 15:29 | STRESSREP ---
Stress Test Report Pharmacologic myocardial perfusion stress test. 74-year-old lady with a history of coronary artery disease ischemic cardiomyopathy. Patient is status post coronary artery bypass surgery with a SHETH to the LAD, saphenous vein graft obtuse marginal branch, saphenous vein graft to posterior descending artery in July 2015. Stress protocol: Resting EKG demonstrates normal sinus rhythm with a rate of 88 bpm normal intervals are noted resting blood pressure is 120/78 mmHg. 0.4 mg of regadenoson was infused per usual protocol followed by rapid intravenous saline flush injection continuous EKG monitoring was performed. The maximum heart rate attained 111 bpm which was 76% of max impacted heart rate the maximum workload was 1 metabolic equivalent. The final blood pressure was 120/78 mmHg. At rest and peak infusion there were nonspecific ST-T wave changes noted with no meet the criteria for ischemia. Myocardial perfusion protocol. 11.0 mCi of technetium 99m sestamibi was injected at rest. 0.4 mg of regadenoson was infused per usual protocol. Peak infusion 33.5 mCi of technetium 99m sestamibi was injected stress images were obtained stress and rest images were reconstructed and compared in the short axis vertical long horizontal long axis. Gated images were also obtained Perfusion SPECT analysis: Review of the images demonstrate a large defect noted involving the septum anterior wall apex and inferior wall. The lateral wall appears to be normally perfused. This appears to be on the stress as well as the resting images. The above is suggestive of an extensive anterior septal, anteroapical, and inferior infarct. No significant ischemia is noted. The lateral wall is normal. Gated SPECT analysis: The gated ejection fraction is noted to be 30% with severe anterior septum and inferior hypokinesis. Conclusion: Ischemic cardiomyopathy. Extensive previous infarct involving the anterior wall, septum, apex, and inferior wall.
== END ==
PROVIDERS: PCP Family Medicine; Referring Provider Nurse Practitioner Family; Visit Provider Nurse Practitioner Family
DX: R07.9 Chest pain, unspecified (principal); R06.02 Shortness of breath; I25.119 Atherosclerotic heart disease of native coronary artery with unspecified angina pectoris; I11.0 Hypertensive heart disease with heart failure; I50.9 Heart failure, unspecified; E78.5 Hyperlipidemia, unspecified; Z95.1 Presence of aortocoronary bypass graft
CPT/HCPCS: 78452; 93017; A9500; A4216; J2785

== ENCOUNTER → 2020-03-26 11:24 | Outpatient (CLI) | payer MEDICARE, SELFPAY ==
[2020-03-26 13:19] LABS: BNP,B-Type NATRIURETIC PEPTIDE 1374.6 pg/mL (0-100)
[2020-03-26 13:25] LABS: Anion Gap 8 (5-15); BUN 20 mg/dL (7-18); BUN/Creat Ratio 25.8 RATIO (10-20); Calcium,Total 8.9 mg/dL (8.5-10.1); Chloride 106 mmol/L (98-107); Creatinine, Serum 0.78 mg/dL (0.55-1.02); EST Glomerular Filtration Rate 77 mL/min (>60); Est Glom Filt Rate - Afr Amer 93 mL/min (>60); Glucose 143 mg/dL (74-106); Potassium 3.6 mmol/L (3.5-5.1); Sodium Level 138 mmol/L (136-145)
== END ==
PROVIDERS: PCP Family Medicine; Referring Provider Nurse Practitioner Family; Visit Provider Nurse Practitioner Family
DX: I11.0 Hypertensive heart disease with heart failure (principal); I50.22 Chronic systolic (congestive) heart failure; R06.00 Dyspnea, unspecified; I25.10 Atherosclerotic heart disease of native coronary artery without angina pectoris; E78.5 Hyperlipidemia, unspecified; Z79.899 Other long term (current) drug therapy
CPT/HCPCS: 36415; 80048; 83880

== ENCOUNTER → 2020-09-18 10:28 | Outpatient (CLI) | payer MEDICARE, SELFPAY ==
[2020-09-11 08:57] VITALS: BMI 27.6
--- NOTE | 2020-09-18 10:35 | ECHOCS_ITS ---
Version 2 Reason For Study: DYSPNEA/SOB Procedure This was a 2D Doppler, Color Flow transthoracic echocardiogram. The study was technically difficult. PT unable to tolerate probe pressure. Contrast injection was performed. Left Ventricle Normal LV size. The estimated ejection fraction is 35 %. Stage 1 diastolic dysfunction. There is moderate global hypokinesis of the left ventricle. Right Ventricle Normal RV size. Normal systolic function. Atria Normal left atrium. Mitral Valve Mitral valve not well visualized. Tricuspid Valve The tricuspid valve is not well visualized. Mild (1+) tricuspid valve insufficiency. Right ventricular systolic pressure estimated to be 39 mmHg. Aortic Valve The aortic valve is not well visualized. Pulmonic Valve The pulmonic valve is not well visualized. Great Vessels Normal aortic root. The pulmonary is not well visualized. Normal inferior vena cava. Pericardium/Pleural No pericardial effusion. Medication 22 gauge I.V. with prn adaptor inserted into left arm. Diluted definity 3.0ml given slow IV push to enhance endocardial definition. MMode/2D Measurements & Calculations LVIDd: 4.8 cm IVSd: 0.96 cm Ao root diam: 2.8 cm LVIDs: 4.3 cm LVPWd: 1.0 cm RVDd: 3.0 cm FS: 11.3 % LAV(MOD-bp): 45.0 ml LVAd ap4: 36.3 cm2 LVAd ap2: 34.7 cm2 LAV(MOD-bp) Indexed: 24.6 ml/m2 LVLd ap4: 8.9 cm LVLd ap2: 8.6 cm LAV(MOD-sp2): 42.3 ml EDV(MOD-sp4): 122.6 ml EDV(MOD-sp2): 114.1 ml LAV(MOD-sp4): 47.2 ml EDV(sp4-el): 126.5 ml EDV(sp2-el): 118.2 ml LVAs ap4: 27.7 cm2 LVAs ap2: 25.3 cm2 LVLs ap4: 8.1 cm LVLs ap2: 7.8 cm ESV(MOD-sp4): 77.4 ml ESV(MOD-sp2): 68.1 ml ESV(sp4-el): 80.8 ml ESV(sp2-el): 69.6 ml EF(MOD-sp4): 36.8 % EF(MOD-sp2): 40.3 % EF(sp4-el): 36.1 % SV(MOD-sp4): 45.2 ml SV(MOD-sp2): 46.0 ml SV(sp4-el): 45.7 ml LA A4 area: 16.8 cm2 LA dimension(2D): 4.2 cm RA A4 area: 17.3 cm2 Time Measurements MV dec time: 0.19 sec Doppler Measurements & Calculations MV E max chintan: 76.2 cm/sec Lat Peak E' Chintan: 3.4 cm/sec Med Peak E' Chintan: 4.7 cm/sec MV A max chintan: 125.8 cm/sec E/E' lat: 22.3 E/E' med: 16.2 MV E/A: 0.61 Ao V2 max: 164.7 cm/sec LV V1 max: 111.9 cm/sec PA V2 max: 104.8 cm/sec Ao max P.9 mmHg LV V1 max P.0 mmHg TR max chintan: 309.5 cm/sec TR max P.1 mmHg ECHO/Echo Complete W/ Contrast Interpretation Summary Normal LV size. The estimated ejection fraction is 35 %. There is moderate global hypokinesis of the left ventricle. Stage 1 diastolic dysfunction. Right ventricular systolic pressure estimated to be 39 mmHg. Contrast injection was performed. Compared to previous study, the left ventricu lar systolic function is the same.. Ordering Physician: Richard Roger Referring Physician: Chetan Mclain Performed By: Gloria Valera, TARIQ, RVT
== END ==
PROVIDERS: PCP Family Medicine; Referring Provider Internal Medicine Cardiovascular Disease; Visit Provider Internal Medicine Cardiovascular Disease
DX: I21.4 Non-ST elevation (NSTEMI) myocardial infarction (principal)
CPT/HCPCS: 93306; Q9957; A4216; C8929; J3490

== ENCOUNTER 2020-10-01 10:08 | Day surgery (SDC) | payer MEDICARE, SELFPAY ==
[2020-09-11 08:57] VITALS: BMI 27.6
--- NOTE | 2020-09-29 10:20 | RAD_ITS ---
STUDY: X-RAY CHEST REASON FOR EXAM: Female, 74 years old. dyspnea and amp; Cough TECHNIQUE: Frontal and lateral views of the chest COMPARISON: 16 September 2017 FINDINGS: There are sternotomy wires. The lungs are clear and expanded. There is no demonstrated pleural abnormality. The heart is mildly enlarged. Normal mediastinum and dolores. Normal visualized pulmonary arteries. Normal visualized aortic arch and descending thoracic aorta. Normal visualized thoracic spine. Normal visualized ribs, clavicles, and shoulders. There is no demonstrated abnormality of the visualized soft tissue structures of the upper abdomen. RAD/Chest PA and Lateral IMPRESSION: No acute findings. Mild cardiomegaly, prior open heart surgery. Electronically Signed: Tanja Cox MD at 17:19 EDT Tel , Service support ,
[2020-09-29 10:56] LABS: Absolute Lymphocyte Count 2.17 X10^3/uL (0.83-4.51); Absolute Neutrophil Count 9.2 X10^3/uL (2.0-7.7); Basophil# 0.03 X10^3/uL; Basophil% 0.2 % (0-1); Eosinophil# 0.02 X10^3/uL; Eosinophils% 0.2 % (0-5); Hematocrit 43.1 % (37-47); Hemoglobin 13.7 g/dL (12.0-15.0); Lymphocyte # 2.17 X10^3/ul (0.83-4.51); Lymphocyte % 17.5 % (19-41); Mean Corp Hgb Conc 31.8 g/dL (32-36); Mean Corpuscular Hgb 29.7 pg (27.0-32.0); Mean Corpuscular Volume 93.5 fL (81-99); Mean Platelet Vol. 9.4 fl (6.2-12.0); Monocyte# 0.88 X10^3/uL; Monocyte% 7.1 % (0-10); NRBC Flagged by Analyzer 0 % (0-5); Neutrophil # 9.19 X10^3/uL (2.7-7.7); Neutrophil % 74.4 % (47-70); Platelet Count 332 K/mm3 (150-450); RBC Distribution Width CV 13.7 % (11.6-14.6); RBC Distribution Width SD 46.7 fl (35.1-43.9); Red Blood Count 4.61 M/mm3 (4.2-5.4); White Blood Count 12.4 K/mm3 (4.4-11.0)
[2020-09-29 11:12] LABS: Anion Gap 9 (5-15); BUN 31 mg/dL (7-18); BUN/Creat Ratio 32.3 RATIO (10-20); Calcium,Total 9.3 mg/dL (8.5-10.1); Chloride 103 mmol/L (98-107); Creatinine, Serum 0.96 mg/dL (0.55-1.02); EST Glomerular Filtration Rate 60 mL/min (>60); Est Glom Filt Rate - Afr Amer 73 mL/min (>60); Glucose 148 mg/dL (74-106); Potassium 4.6 mmol/L (3.5-5.1); Sodium Level 138 mmol/L (136-145)
[2020-09-29 13:37] VITALS: BMI 27.6
--- NOTE | 2020-10-01 12:47 | CL.D_ITS ---
Patient Name: BROCK RESENDEZ Study Date: 10/01/2020 Performing: Richard Roger MD Ht: 64.96 inches 165 cm : 1945 Wt: 165.35 lbs 75 kg Age: 74 Gender: female BSA: 1.82 PROCEDURE(S) PERFORMED RB60-TRP/COR/LV/CABG CLINICAL PROFILE AND INDICATIONS Indications: Worsening Angina Heart Failure: None Stress/Imaging Stress/Image Study Performed: No CAD Presentations: Unstable angina. CONCLUSIONS Patent SHETH to the LAD, saphenous vein graft obtuse marginal branch is patent, saphenous vein graft t o right coronary artery is occluded old. [place] circulation is severely diseased but patient carmen ears to be fairly well revascularized in comparison to the previous heart catheterization. RECOMMENDATIONS Medical therapy Maximize medical therapy and repeat echocardiogram in 3 months to determine if ICD required DESCRIPTION OF PROCEDURE The patient arrived to the procedure lab. The risks and benefits of the procedure as well as a full d escription of our services here and current unavailability of surgical backup were fully explained to the patient and/or their significant other prior to the catheterization. The Timeout was completed, verifying the correct patient and procedure. The patient's procedural site was prepped and draped in the usual fashion. Local anesthetic was given subcutaneously to right groin region with Lidocaine 2%. Using a modified Seldinger technique, arterial access was obtained via the right femoral artery, wit h Micropuncture set Left Coronary Artery selective angiography was performed in multiple views using a 5 Fr. JL4 catheter. Right Coronary Artery selective angiography was then performed in multiple vie ws using a 5 Fr. 3DRC (Maurilio) catheter. Saphenous Vein graft to the OM 1 selective angiography was performed in multiple views using a 5 Fr. 3DRC (Maurilio) catheter. Left internal mammary artery graft to the LAD selective angiography was performed in multiple views using a 5 Fr. 3DRC ([facility]) catheter. Left Ventriculography was performed in MARTÍNEZ projection using a 5 Fr. Pigtail catheter . LV to AO pullback pressures were then recorded.The arterial sheath was pulled and a Mynx closure de vice was deployed for hemostasis CORONARY ANGIOGRAPHY DOMINANCE: Right Dominant LEFT HEART ASSESSMENT Left Ventricular Ejection Fraction: by LV Gram 50 % Inferior Basal Akinesis Depressed Left Ventricular systolic function LEFT MAIN: Angiographically normal LEFT ANTERIOR DESCENDING ARTERY: PROX LAD: is occluded CIRCUMFLEX ARTERY: PROX CIRC: High-grade 80% stenosis and competitive flow seen in the obtuse marginal vessel and collat erals to the distal right coronary artery RIGHT CORONARY ARTERY: PROX RCA: is occluded GRAFTS: SHETH graft to the Mid LAD is patent Saphenous Vein graft to the 1st OM is patent Saphenous Vein graft to the RPDA is totally occluded COMPLICATIONS No Complications PROCEDURE MEDICATIONS Versed 1 mg IV Versed 1 mg IV Oxygen: 2 L/min via nasal cannula SUMMARY OF HEMODYNAMIC DATA Time AIR REST ECG 10:42:39 AO 129/63 (92) SA 12:15:59 LV 148/21, 30 12:25:56 LV 148/21, 29 12:26:03 LV 130/20, 28 12:26:48 LVp 131/17, 33 12:26:52 AOp 131/57 (84) 12:26:57 RM AIR REST 12:42:01 Signed By Richard Roger MD On 10/01/2020 13:03:15 Signed By Richard Roger MD On 10/01/2020 12:46:02 Richard Roger MD
== END 2020-10-01 15:43 | disposition home or self-care (01) ==
LOC: CLSP 10:09
PROVIDERS: PCP Family Medicine; Referring Provider Internal Medicine Cardiovascular Disease; Visit Provider Internal Medicine Cardiovascular Disease
DX: I25.118 Atherosclerotic heart disease of native coronary artery with other forms of angina pectoris (principal); I10 Essential (primary) hypertension; I11.0 Hypertensive heart disease with heart failure; I50.22 Chronic systolic (congestive) heart failure; E11.9 Type 2 diabetes mellitus without complications; E78.5 Hyperlipidemia, unspecified; J44.9 Chronic obstructive pulmonary disease, unspecified; I25.5 Ischemic cardiomyopathy; I25.2 Old myocardial infarction; G47.33 Obstructive sleep apnea (adult) (pediatric); Z79.899 Other long term (current) drug therapy; Z79.82 Long term (current) use of aspirin; Z79.84 Long term (current) use of oral hypoglycemic drugs; Z87.891 Personal history of nicotine dependence; Z95.1 Presence of aortocoronary bypass graft
CPT/HCPCS: 36415; 71046; 80048; 85025; 93005; 93459; 99152; 99153; C1760; J7040; Q9967; C1769